=== PATIENT | female | born 1930 | race Caucasian/White ===

== ENCOUNTER 2018-08-21 17:32 | Inpatient (IN) ==
[2018-08-21] MEDS ORDERED: Sod Chloride 0.9% Inj 1,000 ML IV.SIG SCH (18:00)
[2018-08-21 18:32] LABS: Baso % (Auto) 0.2 % (0.0-2.0); Eos % (Auto) 0.2 % (0.0-4.0); Hematocrit 27.1 % (35.0-46.0); Hemoglobin 8.5 gm/dL (11.6-15.3); Lymph # (Auto) 0.7 th/mm3 (1.0-4.8); Lymph % (Auto) 5.1 % (9.0-44.0); Mean Corpuscular HGB Conc 31.2 % (32.0-36.0); Mean Corpuscular Hemoglobin 23.3 pg (27.0-34.0); Mean Corpuscular Volume 74.6 fL (80.0-100.0); Mean Platelet Volume 8.6 fL (7.0-11.0); Mono # (Auto) 0.5 th/mm3 (0.0-0.9); Mono % (Auto) 3.9 % (0.0-8.0); Neut # (Auto) 11.6 th/mm3 (1.8-7.7); Neut % (Auto) 90.6 % (16.0-70.0); Platelet Count 320 th/mm3 (150-450); Red Blood Count 3.63 mil/mm3 (4.00-5.30); Red Cell Distribution Width 16.7 % (11.6-17.2); White Blood Count 12.9 th/mm3 (4.0-11.0)
[2018-08-21 18:51] LABS: Activated Partial Thrombo Time 26.6 sec (23.4-31.7); Prothrombin Time 9.9 sec (9.8-11.6)
[2018-08-21 18:53] LABS: Alanine Aminotransferase 18 U/L (10-53); Albumin 3.4 g/dL (3.4-5.0); Anion Gap 7 meq/L (5-15); Aspartate Aminotransferase 18 U/L (15-37); Blood Urea Nitrogen 22 mg/dL (7-18); Calcium 8.3 mg/dL (8.5-10.1); Carbon Dioxide 26.3 meq/L (21.0-32.0); Chloride 108 meq/L (98-107); Glomerular Filtration Rate 45 mL/min (>89); Glucose,Random 114 mg/dL (74-106); Potassium 4.4 meq/L (3.5-5.1); Sodium 141 meq/L (136-145)
[2018-08-21 18:55] LABS: Alkaline Phosphatase 120 U/L (45-117)
--- NOTE | 2018-08-21 19:09 | ED ---
HPI General Chief complaint: Abdominal Pain Stated complaint: Abd pain Time Seen by Provider: 08/21/18 17:52 History of Present Illness HPI narrative: This is an 88-year-old female presents emergency department for evaluation of rectal bleeding and bilateral flank pain. Patient states been going on for about the past 24 hours. Nausea and black emesis as well as intermittent blood in the stool. She is not any blood thinners. States last colonoscopy was 4 years ago and was negative. States the pain is fairly mild, associated signs symptoms context and duration as above per Related Data Home Medications Medication Instructions Recorded Confirmed atorvastatin 40 mg PO QPM 08/21/18 08/21/18 conjugated estrogens [Premarin] 0.3 mg PO DAILY 08/21/18 08/21/18 diltiazem HCl [Tiazac] 240 mg PO DAILY 08/21/18 08/21/18 rabeprazole 20 mg PO DAILY 08/21/18 08/21/18 telmisartan 80 mg PO DAILY 08/21/18 08/21/18 Allergies Allergy/AdvReac Type Severity Reaction Status Date / Time No Known Allergies Allergy Verified 08/21/18 17:47 Review of Systems ROS: all other systems reviewed are negative [facility] Medical History Medical History Atrial fibrillation (Acute) Bowel cancer (Acute) Constipation (Acute) HTN (hypertension) (Acute) Hyperlipidemia (Acute) Surgical History Surgical History History of colon resection (Acute) Family History Family History Other Colon cancer Social History Social History Substance History: No History of Abuse Smoking Status: Former smoker How Often Do You Have a Drink Containing Alcohol: 2 to 4 times a month Recent Travel in [facility] within the Last 8 Weeks: No Recent Out of Country Travel within the Last 8 Weeks: Yes Immunization History Tetanus Immunization: >5 Years Exam Narrative Exam Narrative: GENERAL: Well-developed well-nourished, no obvious distress. Pale. SKIN: Focused skin assessment warm/dry. HEAD: Atraumatic. Normocephalic. EYES: Pupils equal and round. No scleral icterus. No injection or drainage. Conjunctival pallor noted ENT: No nasal bleeding or discharge. Mucous membranes pink and moist. NECK: Trachea midline. No JVD. CARDIOVASCULAR: Regular rate and rhythm. No murmur appreciated. RESPIRATORY: No accessory muscle use. Clear to auscultation. Breath sounds equal bilaterally. GASTROINTESTINAL: Abdomen soft, non-tender, nondistended. Hepatic and splenic margins not palpable. MUSCULOSKELETAL: No obvious deformities. No clubbing. No cyanosis. No edema. NEUROLOGICAL: Awake and alert. No obvious cranial nerve deficits. Motor grossly within normal limits. Normal speech. PSYCHIATRIC: Appropriate mood and affect; insight and judgment normal. Course Initial Documented Vital Signs Temperature 98.4 F 08/21/18 17:35 Pulse Rate 86 08/21/18 17:35 Respiratory Rate 16 08/21/18 17:35 Blood Pressure 232/97 H 08/21/18 17:35 Pulse Oximetry 93 L 08/21/18 17:35 Last Documented Vital Signs Temperature 98.4 F 08/21/18 17:35 Pulse Rate 103 H 08/22/18 01:12 Respiratory Rate 16 08/22/18 01:12 Blood Pressure 160/80 H 08/22/18 01:12 Pulse Oximetry 100 08/22/18 01:12 Sign Out Sign Out Data: Patient Sign Out occurred on 08/21/18 at 20:34. Patient's care was discussed, and care was transferred from Moose Edwards MD to Katt King MD. Sign Out Comment: GI Bleed, Bilateral flank pain, anemia. Probably admit after CT. Last updated by Moose Edwards MD at 08/21/18 19:30 Post-Handoff Eval: The patient's case was checked out to me by Dr. Edwards. Please see his initial history and physical. The patient reportedly presented with complaints of rectal bleeding and bilateral flank pain. The patient additionally reported to me that over the last 2 weeks she has had a cough productive of clear sputum. During the course of the patient's emergency department visit, the patient's history, examination, and differential diagnosis were reviewed with the patient. The patient was placed on a security monitor with oximetry and frequent blood pressure monitoring. The patient had IV access obtained and blood work sent for analysis. The patient was initially provided normal saline 1 L IV fluid bolus. The patient's diagnostic studies are remarkable for a white count of 12.9, hemoglobin 8.5, platelets are 320, neutrophils 90.6. PT PTT within normal limits. Chemistries remarkable for chloride of 108, BUN 22, creatinine 1.15, glucose 114, calcium 8.3, alk phos 120. I was notified by the patient's nurse that the patient was tachypneic and tachycardic. Patient on examination by me appeared to be in A. fib with RVR. Cardiac enzymes were added to the patient's workup. The patient reports a recent history, 2 weeks ago arriving from [place] , d-dimer was added to her workup to evaluate for possible underlying PE. The patient was started on Cardizem as a bolus and then a drip. A chest x-ray was done which showed mild pulmonary vascular congestion, no focal infiltrate. The patient was given Lasix [address] scan of the abdomen and pelvis shows that the patient is status post right hemicolectomy and hysterectomy, 2 gallstones within a noninflamed gallbladder are noted. No etiology to explain the patient's abdominal pain and no evidence of bowel obstruction was noted by the radiologist. The patient's cardiac enzymes are noted be within normal limits, BNP is elevated at 296. D-dimer was noted to be elevated at 1.73. I spoke to CT regarding this patient's case, they reported that the patient's GFR was too low to have additional IV contrast for CTA to rule out PE. VQ scan was ordered instead per the patient's VQ scan shows low probability scan for pulmonary embolism. The patient's case including history, pertinent physical examination findings, and laboratory studies were discussed with Dr. Connor. It was agreed that the patient would be admitted to the hospitalist service. The patient's results were discussed with the patient, including the plan of care. I explained that further testing and/ or monitoring is indicated based on the patient's history, examination, and/ or laboratory findings. Therefore, I recommended admission for additional evaluation. The patient expressed understanding and was agreeable with this plan. The patient was admitted to the hospital in guarded condition and sent to a bed under the care of the [facility] service. Medical Decision Making MDM Narrative Medical decision making narrative: Patient 88-year-old female not on anticoagulants presents the emergency department for evaluation of rectal bleeding, emesis which has been dark and bilateral flank pain. Patient does appear anemic, hemoglobin in the 8 range, she is actually hypertensive and no indication for emergent blood. Her rectal exam did show hemorrhoids which were nonthrombosed which were not bleeding, there was mucus only on her rectal exam but it was Hemoccult positive. Patient with a CAT scan pending will likely require admission for further workup of GI bleeding. Discussed with Dr. Katt King at 1900 chief change. Medical Screen Exam Complete: Yes Emergency Medical Condition: Yes Lab Data Result diagrams: 08/22/18 02:38 08/21/18 18:25 Lab Results 08/21/18 08/21/18 08/21/18 Range/Units 18:25 18:25 18:25 WBC 12.9 H (4.0-11.0) th/mm3 RBC 3.63 L (4.00-5.30) mil/mm3 Hgb 8.5 L (11.6-15.3) gm/dL Hct 27.1 L (35.0-46.0) % MCV 74.6 L (80.0-100.0) fL MCH 23.3 L (27.0-34.0) pg MCHC 31.2 L (32.0-36.0) % RDW 16.7 (11.6-17.2) % Plt Count 320 (150-450) th/mm3 MPV 8.6 (7.0-11.0) fL Neut % (Auto) 90.6 H (16.0-70.0) % Lymph % (Auto) 5.1 L (9.0-44.0) % Owsley % (Auto) 3.9 (0.0-8.0) % Eos % (Auto) 0.2 (0.0-4.0) % Baso % (Auto) 0.2 (0.0-2.0) % Neut # (Auto) 11.6 H (1.8-7.7) th/mm3 Lymph # (Auto) 0.7 L (1.0-4.8) th/mm3 Owsley # (Auto) 0.5 (0.0-0.9) th/mm3 Eos # (Auto) 0.0 (0.0-0.4) th/mm3 Baso # (Auto) 0.0 (0.0-0.2) th/mm3 WBC Differential . Differential Comment Auto diff final PT 9.9 (9.8-11.6) sec INR 1.0 Ratio APTT 26.6 (23.4-31.7) sec D-Dimer Quant (PE/DVT) (0.00-0.50) mg/L FEU Sodium 141 (136-145) meq/L Potassium 4.4 (3.5-5.1) meq/L Chloride 108 H (98-107) meq/L Carbon Dioxide 26.3 (21.0-32.0) meq/L Anion Gap 7 (5-15) meq/L BUN 22 H (7-18) mg/dL Creatinine 1.15 H (0.50-1.00) mg/dL Estimated GFR 45 L (>89) mL/min Random Glucose 114 H (74-106) mg/dL Calcium 8.3 L (8.5-10.1) mg/dL Total Bilirubin 0.2 (0.2-1.0) mg/dL AST 18 (15-37) U/L ALT 18 (10-53) U/L Alkaline Phosphatase 120 H (45-117) U/L Total Creatine Kinase (26-192) U/L Troponin I (0.02-0.05) ng/mL B-Natriuretic Peptide (0-100) pg/mL Total Protein 7.0 (6.4-8.2) g/dL Albumin 3.4 (3.4-5.0) g/dL Urine Color (Yellw/Straw) Urine Clarity (Clear) Urine pH (5.0-8.5) Ur Specific Blackwell (1.002-1.035) Urine Protein (Neg-Trace) mg/dL Urine Glucose (UA) (Negative) mg/dL Urine Ketones (Negative) mg/dL Urine Occult Blood (Negative) Urine Nitrate (Negative) Urine Bilirubin (Negative) Urine Urobilinogen (Less than 2) mg/dL Ur Leukocyte Esterase (Negative) Urine RBC (0-3) /hpf Urine WBC (0-5) /hpf Urine Bacteria (None) /hpf Urine Mucus (Occasional) /lpf Micro UA Comment Ur Microscopic Review Urine Culture Comments Blood Type Blood Type Recheck Antibody Screen 08/21/18 08/21/18 08/21/18 Range/Units 18:25 18:25 18:25 WBC (4.0-11.0) th/mm3 RBC (4.00-5.30) mil/mm3 Hgb (11.6-15.3) gm/dL Hct (35.0-46.0) % MCV (80.0-100.0) fL MCH (27.0-34.0) pg MCHC (32.0-36.0) % RDW (11.6-17.2) % Plt Count (150-450) th/mm3 MPV (7.0-11.0) fL Neut % (Auto) (16.0-70.0) % Lymph % (Auto) (9.0-44.0) % Owsley % (Auto) (0.0-8.0) % Eos % (Auto) (0.0-4.0) % Baso % (Auto) (0.0-2.0) % Neut # (Auto) (1.8-7.7) th/mm3 Lymph # (Auto) (1.0-4.8) th/mm3 Owsley # (Auto) (0.0-0.9) th/mm3 Eos # (Auto) (0.0-0.4) th/mm3 Baso # (Auto) (0.0-0.2) th/mm3 WBC Differential Differential Comment PT (9.8-11.6) sec INR Ratio APTT (23.4-31.7) sec D-Dimer Quant (PE/DVT) 1.73 H (0.00-0.50) mg/L FEU Sodium (136-145) meq/L Potassium (3.5-5.1) meq/L Chloride (98-107) meq/L Carbon Dioxide (21.0-32.0) meq/L Anion Gap (5-15) meq/L BUN (7-18) mg/dL Creatinine (0.50-1.00) mg/dL Estimated GFR (>89) mL/min Random Glucose (74-106) mg/dL Calcium (8.5-10.1) mg/dL Total Bilirubin (0.2-1.0) mg/dL AST (15-37) U/L ALT (10-53) U/L Alkaline Phosphatase (45-117) U/L Total Creatine Kinase 46 (26-192) U/L Troponin I Less than 0.02 L (0.02-0.05) ng/mL B-Natriuretic Peptide 296 H (0-100) pg/mL Total Protein (6.4-8.2) g/dL Albumin (3.4-5.0) g/dL Urine Color (Yellw/Straw) Urine Clarity (Clear) Urine pH (5.0-8.5) Ur Specific Blackwell (1.002-1.035) Urine Protein (Neg-Trace) mg/dL Urine Glucose (UA) (Negative) mg/dL Urine Ketones (Negative) mg/dL Urine Occult Blood (Negative) Urine Nitrate (Negative) Urine Bilirubin (Negative) Urine Urobilinogen (Less than 2) mg/dL Ur Leukocyte Esterase (Negative) Urine RBC (0-3) /hpf Urine WBC (0-5) /hpf Urine Bacteria (None) /hpf Urine Mucus (Occasional) /lpf Micro UA Comment Ur Microscopic Review Urine Culture Comments Blood Type Blood Type Recheck Antibody Screen 08/21/18 08/21/18 08/22/18 Range/Units 18:40 21:27 02:38 WBC (4.0-11.0) th/mm3 RBC (4.00-5.30) mil/mm3 Hgb 10.4 L (11.6-15.3) gm/dL Hct 33.5 L (35.0-46.0) % MCV (80.0-100.0) fL MCH (27.0-34.0) pg MCHC (32.0-36.0) % RDW (11.6-17.2) % Plt Count (150-450) th/mm3 MPV (7.0-11.0) fL Neut % (Auto) (16.0-70.0) % Lymph % (Auto) (9.0-44.0) % Owsley % (Auto) (0.0-8.0) % Eos % (Auto) (0.0-4.0) % Baso % (Auto) (0.0-2.0) % Neut # (Auto) (1.8-7.7) th/mm3 Lymph # (Auto) (1.0-4.8) th/mm3 Owsley # (Auto) (0.0-0.9) th/mm3 Eos # (Auto) (0.0-0.4) th/mm3 Baso # (Auto) (0.0-0.2) th/mm3 WBC Differential Differential Comment PT (9.8-11.6) sec INR Ratio APTT (23.4-31.7) sec D-Dimer Quant (PE/DVT) (0.00-0.50) mg/L FEU Sodium (136-145) meq/L Potassium (3.5-5.1) meq/L Chloride (98-107) meq/L Carbon Dioxide (21.0-32.0) meq/L Anion Gap (5-15) meq/L BUN (7-18) mg/dL Creatinine (0.50-1.00) mg/dL Estimated GFR (>89) mL/min Random Glucose (74-106) mg/dL Calcium (8.5-10.1) mg/dL Total Bilirubin (0.2-1.0) mg/dL AST (15-37) U/L ALT (10-53) U/L Alkaline Phosphatase (45-117) U/L Total Creatine Kinase (26-192) U/L Troponin I (0.02-0.05) ng/mL B-Natriuretic Peptide (0-100) pg/mL Total Protein (6.4-8.2) g/dL Albumin (3.4-5.0) g/dL Urine Color Straw (Yellw/Straw) Urine Clarity Clear (Clear) Urine pH 7.0 (5.0-8.5) Ur Specific Blackwell 1.021 (1.002-1.035) Urine Protein Negative (Neg-Trace) mg/dL Urine Glucose (UA) 50 (Negative) mg/dL Urine Ketones Negative (Negative) mg/dL Urine Occult Blood Large H (Negative) Urine Nitrate Negative (Negative) Urine Bilirubin Negative (Negative) Urine Urobilinogen Less than 2 (Less than 2) mg/dL Ur Leukocyte Esterase Trace H (Negative) Urine RBC 2 (0-3) /hpf Urine WBC 2 (0-5) /hpf Urine Bacteria Rare H (None) /hpf Urine Mucus Few H (Occasional) /lpf Micro UA Comment Culture not ind Ur Microscopic Review Not Reportable Urine Culture Comments Culture not ind Blood Type O Positive Blood Type Recheck Antibody Screen Negative Imaging Data Radiologist's impression: Abdomen/Pelvis CT 08/21/18 17:59 CONCLUSION: 1. Status post right hemicolectomy and hysterectomy. 2 gallstones within a noninflamed gallbladder. No etiology for abdominal pain is identified. No evidence of bowel obstruction. Chest X-Ray 08/21/18 20:20 CONCLUSION: Mild pulmonary vascular congestion. No focal infiltrate. Pulmonary Perfusion Imaging 08/22/18 00:21 CONCLUSION: Low probability scan for pulmonary embolism ECG Data Attestation: I personally reviewed and interpreted this ECG as follows: Interpretation: The patient had an EKG done on arrival that shows atrial fibrillation heart rate of 94, QRS duration is 93 ms, QTC [address] segment elevation. Discharge Plan Discharge Disposition Patient Disposition: ED Admit(ED Internal Use Only) Discharge Order Discharge Orders: ED Use Only Admit Order (Routine); Ordered 08/21/18 Ordered By: Katt King Discharge Details Diagnosis: GI bleed, Atrial fibrillation with RVR Physicians Team ED Provider: Katt King Primary Care Provider: Primary Care Jeromy,Gracia Attending Provider: Myesha Connor Discharge Interventions Interventions: Vital Signs Last Done: 08/22/18 01:12 Status ED Status: Admitted Patient
--- NOTE | 2018-08-21 19:40 | CT ---
EXAM DATE: 08/21/2018 7:25 PM EST AGE/SEX: 88 years / Female INDICATIONS: Acute onset abdominal pain with nausea and vomiting. CLINICAL DATA: This is the patient's initial encounter. Patient reports that signs and symptoms have been present for 1 day and indicates a pain score of 7/10. MEDICAL/SURGICAL HISTORY: Carcinoma, colon. Hypertension. Colon resection. ORAL CONTRAST: No oral contrast ingested. RADIATION DOSE: 6.64 CTDI (mGy) COMPARISON: No prior exams available for comparison. TECHNIQUE: Multiple contiguous axial images were obtained through the abdomen and pelvis following b olus infusion of 96 ml Omnipaque 350 (iohexol) nonionic water-soluble contrast as a single exam dos e. No oral contrast ingested. Using automated exposure control and adjustment of the mA and/or kV ac cording to patient size, radiation dose was kept as low as reasonably achievable to obtain optimal di agnostic quality images. DICOM format image data is available electronically for review and comparis on. FINDINGS: Lower Lungs: The visualized lower lungs are clear. Bilateral pleural effusions right greater than lef t Liver: The liver has a homogeneous density without space-occupying lesion. There is no dilation of th e biliary tree. A least 2 gallstones in a noninflamed gallbladder. Spleen: Homogeneous density without enlargement. Pancreas: Unremarkable without mass or calcification. Kidneys: Normal in size and shape. No evidence of mass or hydronephrosis. Adrenal Glands: Unremarkable. Aorta: Atherosclerotic disease without aneurysm. There is atherosclerotic disease at the origin of th e celiac and SMA but no obvious stenosis or poststenotic dilatation is identified The aorta and proxi mal iliac vessels are grossly unremarkable without aneurysmal dilation. Bowel/Mesentery: The patient's right hemicolectomy. The bowel loops are grossly unremarkable. The sig moid colon has a normal configuration. Sigmoid diverticulosis. Surgical clips throughout the epigastr ium Abdominal Wall: Intact. Retroperitoneum: No evidence of adenopathy in the retrocrural, para-aortic, or deep pelvic regions. Bladder: Contours are smooth. Reproductive Organs: No abnormal masses or calcifications seen status post hysterectomy. Inguinal: The inguinal region is unremarkable without evidence of adenopathy. Bony Structures: Unremarkable. CONCLUSION: 1. Status post right hemicolectomy and hysterectomy. 2 gallstones within a noninflamed gallbladder. No etiology for abdominal pain is identified. No evidence of bowel obstruction. Electronically signed by: Eugenio Dewey MD Board Certified Radiologist 08/21/2018 7:39 PM EST
--- NOTE | 2018-08-21 20:46 | XR ---
EXAM DATE: 08/21/2018 8:31 PM EST AGE/SEX: 88 years / Female INDICATIONS: Short of breath CLINICAL DATA: This is the patient's initial encounter. Patient reports that signs and symptoms have been present for 4 - 6 days and indicates a pain score of 0/10. MEDICAL/SURGICAL HISTORY: . Carcinoma, colon. Hypertension. . Colon resection COMPARISON: No prior exams available for comparison. FINDINGS: A single AP view of the chest demonstrates the lungs to be symmetrically aerated without evidence of mass, infiltrate or effusion. Mild perihilar vascular congestion The cardiomediastinal contours are u nremarkable. Osseous structures are intact. CONCLUSION: Mild pulmonary vascular congestion. No focal infiltrate. Electronically signed by: Eugenio Dewey MD Board Certified Radiologist 08/21/2018 8:44 PM EST
[2018-08-21 21:11] LABS: Creatine Kinase 46 U/L (26-192)
[2018-08-21 21:46] LABS: Bacteria,Urine Rare /hpf; Bilirubin,Urine Negative (Negative); Clarity,Urine Clear (Clear); Color,Urine Straw (Yellw/Straw); Glucose,Urine (UA) 50 mg/dL (Negative); Leukocyte Esterase,Urine Trace (Negative); Mucus,Urine Few /lpf (Occasional); Nitrite,Urine Negative (Negative); Specific Gravity,Urine 1.021 (1.002-1.035)
[2018-08-22] MEDS: dilTIAZem Inj 125 MG in Sodium Chlor 0.9% Inj 100 ML IV.CONT PRN ×2 (00:02→08:29)
--- NOTE | 2018-08-22 02:05 | NM ---
EXAM DATE: 08/22/2018 1:53 AM EST AGE/SEX: 88 years / Female INDICATIONS: Embolus. Dyspnea. CLINICAL DATA: This is the patient's initial encounter. Patient reports that signs and symptoms have been present for 1 day and indicates a pain score of 0/10. MEDICAL/SURGICAL HISTORY: Carcinoma, colon. Hypertension. Colon resection. Hysterectomy. COMPARISON: C, CHEST 1V SINGLE AP, 08/21/2018. . DOSE: 0.83 mCi Tc99m DTPA aerosol 8.5 mCi Tc99m MAA IV TECHNIQUE: Following five minutes of tidal breathing of DTPA aerosol, planar images of the lungs wer e performed in eight projections. The patient was then injected with MAA, and eight-view perfusion s can was performed. FINDINGS: Mild diffuse heterogeneity to aerosol uptake consistent with airways disease. Tiny nonsegmental venti latory abnormalities throughout both lungs. No focal segmental or subsegmental perfusion abnormalities to suggest pulmonary embolism CONCLUSION: Low probability scan for pulmonary embolism Electronically signed by: Parminder Munguia MD Board Certified Radiologist 08/22/2018 2:03 AM EST
--- NOTE | 2018-08-22 02:14 | P.HPIM ---
History of Present Illness Primary Care Physician: No Primary Care Physician 88-year-old female with a past medical history significant for history of ? colon cancer, hypertension, hyperlipidemia, possible atrial fibrillation or flutter not on systemic anticoagulation presents to the emergency department for the evaluation of crampy abdominal pain and cough. The patient is an extremely poor historian. She states that on 07/16/18 she began to have crampy abdominal pain with constipation. She states she had 5 different episodes of this. The patient reports that today she had nausea and vomiting with bloody emesis and bloody stool. She denies any chest pain or shortness of breath. No fever/chills. No focal neurologic deficits. The patient also denies any palpitations, dizziness or lightheadedness. Inpatient Certification Inpatient Certification: I certify that the inpatient services were ordered in accordance with Medicare regulations governing the order. This includes certification that hospital inpatient services are reasonable and necessary and in the case of services not specified as inpatient-only under 42 CFR 419.22(n), that they are appropriately provided as inpatient services in accordance to with the 2-midnight benchmark under 43 CFR 412.3(e) Estimated Total Length of Stay (Days): 3 Plans for Post Hospital Care: Not yet determined Review of Systems Review of Systems: all other systems reviewed are negative [facility] Medical History Medical History Atrial fibrillation (Acute) Bowel cancer (Acute) Constipation (Acute) HTN (hypertension) (Acute) Hyperlipidemia (Acute) Surgical History Surgical History History of colon resection (Acute) Family History Family History Other Colon cancer Social History Social History Substance History: No History of Abuse Smoking Status: Former smoker How Often Do You Have a Drink Containing Alcohol: 2 to 4 times a month Recent Travel in [place] within the Last 8 Weeks: No Recent Out of Country Travel within the Last 8 Weeks: Yes Immunization History Tetanus Immunization: >5 Years Medications and Allergies Allergies Allergy/AdvReac Type Severity Reaction Status Date / Time No Known Allergies Allergy Verified 08/21/18 17:47 Home Medications Medication Instructions Recorded Confirmed Type atorvastatin 40 mg PO QPM 08/21/18 08/21/18 History conjugated estrogens [Premarin] 0.3 mg PO DAILY 08/21/18 08/21/18 History diltiazem HCl [Tiazac] 240 mg PO DAILY 08/21/18 08/21/18 History rabeprazole 20 mg PO DAILY 08/21/18 08/21/18 History telmisartan 80 mg PO DAILY 08/21/18 08/21/18 History Active Medications: Active Medications Atorvastatin Calcium (Lipitor) 40 mg PO QPM RAMIN Diltiazem HCl 125 mg/ Sodium (Chloride) 125 mls @ 5 mls/hr IV.CONT TITRATE PRN ; Protocol PRN Reason: Per Protocol Last Titration: 08/22/18 00:54 Dose: 10 mg/hr, 10 mls/hr Sodium Chloride (Ns Inj) 1,000 mls @ 70 mls/hr IV.CONT .[id number] RAMIN Non-Formulary Medication (Diltiazem Hcl [Tiazac]) 240 mg PO DAILY RAMIN Non-Formulary Medication (Telmisartan [Telmisartan]) 80 mg PO DAILY RAMIN Ondansetron HCl (Zofran Inj) 4 mg IV.PUSH Q6H PRN PRN Reason: NAUSEA OR VOMITING Pantoprazole Sodium (Protonix Inj) 40 mg IV.PUSH BID RAMIN Sodium Chloride (Ns Flush) 2 ml IV.FLUSH PRN PRN PRN Reason: FLUSH AFTER USING IV ACCESS Last Admin: 08/21/18 18:30 Dose: 2 ml Sodium Chloride (Ns Flush) 2 ml IV.FLUSH BID RAMIN Sodium Chloride (Ns Flush) 2 ml IV.FLUSH PRN PRN PRN Reason: FLUSH AFTER USING IV ACCESS Physical Exam Vital signs: Vital Signs 08/21/18 17:35 08/21/18 17:47 08/21/18 18:28 Temperature 98.4 F Pulse Rate 86 85 89 Respiratory Rate 16 21 Blood Pressure 232/97 H 202/77 H 186/88 H Pulse Oximetry 93 L 96 08/21/18 20:05 08/21/18 20:20 08/21/18 20:37 Temperature Pulse Rate 98 H 95 H Respiratory Rate 22 26 H Blood Pressure 170/67 H 211/86 H 149/67 H Pulse Oximetry 90 L 94 L 08/21/18 21:18 08/22/18 00:06 08/22/18 00:57 Temperature Pulse Rate 92 H 105 H 117 H Respiratory Rate 22 18 18 Blood Pressure 181/76 H 177/88 H 163/85 H Pulse Oximetry 90 L 99 99 08/22/18 01:12 Temperature Pulse Rate 103 H Respiratory Rate 16 Blood Pressure 160/80 H Pulse Oximetry 100 Intake & Output 08/21/18 08/21/18 08/22/18 06:59 18:59 06:59 Intake Total 1500 / 1500 Balance 1500 / 1500 Weight 51.71 kg Intake: IV 1000 / 1000 NS Inj 1,000 ML @ 1000 mls/hr 1000 / 1000 IV.SIG BOLUS RAMIN Rx#:[id number] Other 500 / 500 Other: Other Intake Source Saline Solution Narrative: Gen.: No acute distress Head: Normocephalic. Atraumatic. EENT: Pupils equal round and reactive to light. Nose without drainage. Airway intact. Throat without injection. Cardiovascular: Tachycardic. Irregularly irregular rhythm. No murmurs/rubs/ gallops. Respiratory: Lungs clear to auscultation bilaterally. No wheezes or rhonchi. Abdomen: Soft, diffusely tender to palpation, nondistended. No peritoneal signs. Musculoskeletal: No gross deformities. No edema. Skin: No obvious rashes or erythema. Neuro: Sensory and motor grossly intact. Cranial nerves II through XII grossly intact. Urinary Catheter Management Indwelling Urethral Catheter: Cath placed during this visit: yes Reason for continuing: Hourly intake/output Insertion date: 08/22/18 Insertion time: 00:09 Results Labs CBC & Chem 7: 08/21/18 18:25 08/21/18 18:25 Imaging Impressions Abdomen/Pelvis CT 08/21/18 17:59 CONCLUSION: 1. Status post right hemicolectomy and hysterectomy. 2 gallstones within a noninflamed gallbladder. No etiology for abdominal pain is identified. No evidence of bowel obstruction. Chest X-Ray 08/21/18 20:20 CONCLUSION: Mild pulmonary vascular congestion. No focal infiltrate. Pulmonary Perfusion Imaging 08/22/18 00:21 CONCLUSION: Low probability scan for pulmonary embolism Caprini VTE Risk Assessment Caprini VTE Risk Assessment: Moderate/High Risk (score >= 2) Caprini Risk Assessment Model: Point Value = 1 Point Value = 2 Point Value = 3 Point Value = 5 Age 41-60 Minor surgery BMI > 25 kg/m2 Swollen legs Varicose veins or History of unexplained or recurrent spontaneous Oral contraceptives or hormone replacement Sepsis (< 1 month) Serious lung disease, including pneumonia (< 1 month) Abnormal pulmonary function Acute myocardial infarction Congestive heart failure (< 1 month) History of inflammatory bowel disease Medical patient at bed rest Age 61-74 Arthroscopic surgery Major open surgery (> 45 min) Laparoscopic surgery (> 45 min) Malignancy Confined to bed (> 72 hours) Immobilizing plaster cast Central venous access Age >= 75 History of VTE Family history of VTE Factor V Leiden Prothrombin [id number] Lupus anticoagulant Anticardiolipin antibodies Elevated serum homocysteine Heparin-induced thrombocytopenia Other congenital or acquired thrombophilia Stroke (< 1 month) Elective arthroplasty Hip, pelvis, or leg fracture Acute spinal cord injury (< 1 month) Prophylaxis Regimen: Total Risk Factor Score Risk Level Prophylaxis Regimen 0-1 Low Early ambulation 2 Moderate Order ONE of the following: *Sequential Compression Device (SCD) *Heparin 5000 units SQ BID 3-4 Higher Order ONE of the following medications: *Heparin 5000 units SQ TID *Enoxaparin/Lovenox 40 mg SQ daily (WT < 150 kg, CrCl > 30 mL/min) *Enoxaparin/Lovenox 30 mg SQ daily (WT < 150 kg, CrCl > 10-29 mL/min) *Enoxaparin/Lovenox 30 mg SQ BID (WT < 150 kg, CrCl > 30 mL/min) AND/OR *Sequential Compression Device (SCD) 5 or more Highest Order ONE of the following medications: *Heparin 5000 units SQ TID (Preferred with Epidurals) *Enoxaparin/Lovenox 40 mg SQ daily (WT < 150 kg, CrCl > 30 mL/min) *Enoxaparin/Lovenox 30 mg SQ daily (WT < 150 kg, CrCl > 10-29 mL/min) *Enoxaparin/Lovenox 30 mg SQ BID (WT < 150 kg, CrCl > 30 mL/min) AND *Sequential Compression Device (SCD) Assessment and Plan Plan Assessment/plan: 1. Atrial fibrillation with rapid ventricular response EKG shows A. fib with RVR Patient is an extremely poor historian however is on diltiazem at home. States she was previously diagnosed with atrial flutter once. Does not take any systemic anticoagulation Diltiazem bolus and drip Continue home diltiazem Wean drip as tolerated 2. GI bleed Patient reports an episode of hematemesis with bloody stool Hemoccult positive in the emergency department H&H 8.5.1 Transfuse as needed IV Protonix Gastroenterology consulted, appreciate assistance 3. Elevated d-dimer/intermittent shortness of breath VQ scan pending as patient just received contrast with her CT abdomen/pelvis 4. Hypertension/hyperlipidemia Continue home medications FEN N.p.o. NS at 70 cc/hour Electrolytes: Monitor and replete as needed Holding pharmacologic anticoagulation for GI bleed Patient is from [place] however does not have her insurance information. She reports that she will have her bring the information so that permission can be obtained from the insurance company for further workup and treatment.
[2018-08-22 02:52] LABS: Hematocrit 33.5 % (35.0-46.0); Hemoglobin 10.4 gm/dL (11.6-15.3)
[2018-08-22] MEDS: Sod Chloride 0.9% Inj 1,000 ML IV.CONT SCH ×2 (03:09→18:19)
[2018-08-22] MEDS ORDERED: Pantoprazole Inj 40 MG Vial IV.PUSH ONE (03:51)
[2018-08-22] MEDS ORDERED: Morphine Inj 4 MG/ML Vial IV.PUSH PRN (03:51)
[2018-08-22 06:18] LABS: Baso % (Auto) 0.2 % (0.0-2.0); Hematocrit 29.9 % (35.0-46.0); Hemoglobin 9.5 gm/dL (11.6-15.3); Lymph # (Auto) 0.5 th/mm3 (1.0-4.8); Lymph % (Auto) 2.9 % (9.0-44.0); Mean Corpuscular HGB Conc 31.7 % (32.0-36.0); Mean Corpuscular Hemoglobin 23.6 pg (27.0-34.0); Mean Corpuscular Volume 74.4 fL (80.0-100.0); Mean Platelet Volume 8.7 fL (7.0-11.0); Mono # (Auto) 0.8 th/mm3 (0.0-0.9); Mono % (Auto) 5.2 % (0.0-8.0); Neut # (Auto) 14.7 th/mm3 (1.8-7.7); Neut % (Auto) 91.7 % (16.0-70.0); Platelet Count 335 th/mm3 (150-450); Red Blood Count 4.02 mil/mm3 (4.00-5.30); Red Cell Distribution Width 16.8 % (11.6-17.2); White Blood Count 16.1 th/mm3 (4.0-11.0)
[2018-08-22 06:41] LABS: Alanine Aminotransferase 18 U/L (10-53); Albumin 3.4 g/dL (3.4-5.0); Anion Gap 10 meq/L (5-15); Aspartate Aminotransferase 18 U/L (15-37); Blood Urea Nitrogen 15 mg/dL (7-18); Calcium 8.2 mg/dL (8.5-10.1); Carbon Dioxide 27.1 meq/L (21.0-32.0); Chloride 105 meq/L (98-107); Glomerular Filtration Rate 51 mL/min (>89); Glucose,Random 133 mg/dL (74-106); Potassium 3.7 meq/L (3.5-5.1); Sodium 142 meq/L (136-145)
[2018-08-22 06:44] LABS: Alkaline Phosphatase 129 U/L (45-117); Total Protein 7.3 g/dL (6.4-8.2)
[2018-08-22] MEDS: Pantoprazole Inj 40 MG Vial IV.PUSH SCH ×2 (08:56→22:46)
[2018-08-22] MEDS: dilTIAZem CD 240 MG Capsule PO SCH (08:57)
[2018-08-22] MEDS: guaiFENesin 600 MG ER Tablet PO SCH ×2 (08:57→22:46)
--- NOTE | 2018-08-22 09:06 | P.CONGI ---
History of Present Illness Consult date: 08/22/18 Requesting physician: Myesha Connor Consult reason: GI bleeding Chief complaint: GI Bleed, AFIB w RVR Pumonary edema History of Present Illness: 88-year-old female who is a poor historian but reports a past medical history of colon cancer presented to the ER with 4-day history of nausea vomiting and diarrhea. Patient states she had multiple episodes of vomiting and diarrhea for several days and then began having bright red bloody emesis and bloody stools. She denies any fever. She states her was ill as well although not as ill as she was. She states they may have had food poisoning from some shellfish that they both ate. She tells me she had a colon resection many years ago for colon cancer, has a family history of colon cancer in her mother, and her last colonoscopy was 4 years ago and was normal. Labs on initial workup were hemoglobin of 8.5, hematocrit of 27.1, MCV of 74.6 and white blood cell count of 12.9. Most recent labs show white count has increased to 16.1, hemoglobin is 9.5, and hematocrit is 29.9. Platelets are 335. Currently she reports symptoms are resolved. She denies abdominal pain. She denies any nausea. She has no recent vomiting or bowel movements since admission. She is n.p.o. and has no appetite at present. [facility] - History History Provided By: Patient - Medical History Medical History: Medical History (Last Updated 08/22/18 @ 02:09 by Myesha Connor MD) Atrial fibrillation Bowel cancer Constipation HTN (hypertension) Hyperlipidemia - Surgical History Surgical History: Surgical History (Last Reviewed 08/22/18 @ 02:09 by Myesha Connor MD) History of colon resection - Family History Family History: Family History Other Colon cancer - Tobacco History Smoking Status: Former smoker - Alcohol History How Often Do You Have a Drink Containing Alcohol: 2 to 4 times a month - Substance Use History Substance History: No History of Abuse - Travel History Recent Travel in the [place] Within the Last 8 Weeks: No Recent Travel Out of the Country Within the Last 8 Weeks: Yes - Immunization History Tetanus Immunization: >5 Years Medications and Allergies Active Medications: Active Medications Atorvastatin Calcium (Lipitor) 40 mg PO QPM RAMIN Diltiazem HCl (Cardizem Cd 24hr) 240 mg PO DAILY RAMIN Last Admin: 08/22/18 08:57 Dose: 240 mg Guaifenesin (Mucinex Er) 1,200 mg PO BID [facility] Last Admin: 08/22/18 08:57 Dose: 1,200 mg Diltiazem HCl 125 mg/ Sodium (Chloride) 125 mls @ 5 mls/hr IV.CONT TITRATE PRN ; Protocol PRN Reason: Per Protocol Last Admin: 08/22/18 08:29 Dose: 15 mg/hr, 15 mls/hr Sodium Chloride (Ns Inj) 1,000 mls @ 70 mls/hr IV.CONT .[id number] [facility] Last Admin: 08/22/18 03:09 Dose: 70 mls/hr Losartan Potassium (Cozaar) 100 mg PO DAILY [facility] Last Admin: 08/22/18 08:57 Dose: 100 mg Morphine Sulfate (Morphine Inj) 2 mg IV.PUSH Q4H PRN PRN Reason: PAIN 1-10 AND/OR FEVER >101F Last Admin: 08/22/18 04:10 Dose: 2 mg Ondansetron HCl (Zofran Inj) 4 mg IV.PUSH Q6H PRN PRN Reason: NAUSEA OR VOMITING Last Admin: 08/22/18 02:46 Dose: 4 mg Pantoprazole Sodium (Protonix Inj) 40 mg IV.PUSH BID [facility] Last Admin: 08/22/18 08:56 Dose: 40 mg Sodium Chloride (Ns Flush) 2 ml IV.FLUSH BID [facility] Last Admin: 08/22/18 08:58 Dose: 2 ml Sodium Chloride (Ns Flush) 2 ml IV.FLUSH PRN PRN PRN Reason: FLUSH AFTER USING IV ACCESS Allergies Allergy/AdvReac Type Severity Reaction Status Date / Time No Known Allergies Allergy Verified 08/21/18 17:47 Home Medications Medication Instructions Recorded Confirmed Type atorvastatin 40 mg PO QPM 08/21/18 08/21/18 History conjugated estrogens [Premarin] 0.3 mg PO DAILY 08/21/18 08/21/18 History diltiazem HCl [Tiazac] 240 mg PO DAILY 08/21/18 08/21/18 History rabeprazole 20 mg PO DAILY 08/21/18 08/21/18 History telmisartan 80 mg PO DAILY 08/21/18 08/21/18 History Exam Vital signs: Vital Signs 08/21/18 17:35 08/21/18 17:47 08/21/18 18:28 Temperature 98.4 F Pulse Rate 86 85 89 Respiratory Rate 16 21 Blood Pressure 232/97 H 202/77 H 186/88 H Pulse Oximetry 93 L 96 08/21/18 20:05 08/21/18 20:20 08/21/18 20:37 Temperature Pulse Rate 98 H 95 H Respiratory Rate 22 26 H Blood Pressure 170/67 H 211/86 H 149/67 H Pulse Oximetry 90 L 94 L 08/21/18 21:18 08/22/18 00:06 08/22/18 00:57 Temperature Pulse Rate 92 H 105 H 117 H Respiratory Rate 22 18 18 Blood Pressure 181/76 H 177/88 H 163/85 H Pulse Oximetry 90 L 99 99 08/22/18 01:12 08/22/18 03:17 08/22/18 04:27 Temperature Pulse Rate 103 H 137 H 90 Respiratory Rate 16 22 16 Blood Pressure 160/80 H 142/78 H 127/72 Pulse Oximetry 100 99 96 08/22/18 05:32 Temperature 98 F Pulse Rate 118 H Respiratory Rate 20 Blood Pressure 131/72 Pulse Oximetry 97 Intake & Output 08/21/18 08/22/18 08/22/18 18:59 06:59 18:59 Intake Total 1500 / 1500 125 / 125 Output Total 1999 Balance -500 / -500 125 / 125 Weight 51.71 kg Intake: IV 1000 / 1000 125 / 125 Cardizem Inj 125 MG In NS Inj 125 / 125 100 ML @ 5 MG/HR 5 mls/hr IV. CONT TITRATE PRN Rx#:[id number] NS Inj 1,000 ML @ 1000 mls/hr 1000 / 1000 IV.SIG BOLUS RAMIN Rx#:[id number] Other 500 / 500 Output: Urine 1999 Other: Other Intake Source Saline Solution Results - Labs CBC & Chem 7: 08/22/18 05:30 08/22/18 05:30 Labs: Laboratory Results - last 24 hr 08/21/18 08/21/18 08/21/18 18:25 18:25 18:25 WBC 12.9 H RBC 3.63 L Hgb 8.5 L Hct 27.1 L MCV 74.6 L MCH 23.3 L MCHC 31.2 L RDW 16.7 Plt Count 320 MPV 8.6 Neut % (Auto) 90.6 H Lymph % (Auto) 5.1 L Frontier % (Auto) 3.9 Eos % (Auto) 0.2 Baso % (Auto) 0.2 Neut # (Auto) 11.6 H Lymph # (Auto) 0.7 L Frontier # (Auto) 0.5 Eos # (Auto) 0.0 Baso # (Auto) 0.0 WBC Differential . Differential Comment Auto diff final PT 9.9 INR 1.0 APTT 26.6 D-Dimer Quant (PE/DVT) Sodium 141 Potassium 4.4 Chloride 108 H Carbon Dioxide 26.3 Anion Gap 7 BUN 22 H Creatinine 1.15 H Estimated GFR 45 L Random Glucose 114 H Calcium 8.3 L Total Bilirubin 0.2 AST 18 ALT 18 Alkaline Phosphatase 120 H Total Creatine Kinase Troponin I B-Natriuretic Peptide Total Protein 7.0 Albumin 3.4 Urine Color Urine Clarity Urine pH Ur Specific [place] Urine Protein Urine Glucose (UA) Urine Ketones Urine Occult Blood Urine Nitrate Urine Bilirubin Urine Urobilinogen Ur Leukocyte Esterase Urine RBC Urine WBC Urine Bacteria Urine Mucus Micro UA Comment Ur Microscopic Review Urine Culture Comments Blood Type Blood Type Recheck Antibody Screen 08/21/18 08/21/18 08/21/18 18:25 18:25 18:25 WBC RBC Hgb Hct MCV MCH MCHC RDW Plt Count MPV Neut % (Auto) Lymph % (Auto) Frontier % (Auto) Eos % (Auto) Baso % (Auto) Neut # (Auto) Lymph # (Auto) Frontier # (Auto) Eos # (Auto) Baso # (Auto) WBC Differential Differential Comment PT INR APTT D-Dimer Quant (PE/DVT) 1.73 H Sodium Potassium Chloride Carbon Dioxide Anion Gap BUN Creatinine Estimated GFR Random Glucose Calcium Total Bilirubin AST ALT Alkaline Phosphatase Total Creatine Kinase 46 Troponin I Less than 0.02 L B-Natriuretic Peptide 296 H Total Protein Albumin Urine Color Urine Clarity Urine pH Ur Specific [place] Urine Protein Urine Glucose (UA) Urine Ketones Urine Occult Blood Urine Nitrate Urine Bilirubin Urine Urobilinogen Ur Leukocyte Esterase Urine RBC Urine WBC Urine Bacteria Urine Mucus Micro UA Comment Ur Microscopic Review Urine Culture Comments Blood Type Blood Type Recheck Antibody Screen 08/21/18 08/21/18 08/22/18 18:40 21:27 02:38 WBC RBC Hgb 10.4 L Hct 33.5 L MCV MCH MCHC RDW Plt Count MPV Neut % (Auto) Lymph % (Auto) Frontier % (Auto) Eos % (Auto) Baso % (Auto) Neut # (Auto) Lymph # (Auto) Frontier # (Auto) Eos # (Auto) Baso # (Auto) WBC Differential Differential Comment PT INR APTT D-Dimer Quant (PE/DVT) Sodium Potassium Chloride Carbon Dioxide Anion Gap BUN Creatinine Estimated GFR Random Glucose Calcium Total Bilirubin AST ALT Alkaline Phosphatase Total Creatine Kinase Troponin I B-Natriuretic Peptide Total Protein Albumin Urine Color Straw Urine Clarity Clear Urine pH 7.0 Ur Specific [place] 1.021 Urine Protein Negative Urine Glucose (UA) 50 Urine Ketones Negative Urine Occult Blood Large H Urine Nitrate Negative Urine Bilirubin Negative Urine Urobilinogen Less than 2 Ur Leukocyte Esterase Trace H Urine RBC 2 Urine WBC 2 Urine Bacteria Rare H Urine Mucus Few H Micro UA Comment Culture not ind Ur Microscopic Review Not Reportable Urine Culture Comments Culture not ind Blood Type O Positive Blood Type Recheck Antibody Screen Negative 08/22/18 08/22/18 05:30 05:30 WBC 16.1 H RBC 4.02 Hgb 9.5 L Hct 29.9 L MCV 74.4 L MCH 23.6 L MCHC 31.7 L RDW 16.8 Plt Count 335 MPV 8.7 Neut % (Auto) 91.7 H Lymph % (Auto) 2.9 L Frontier % (Auto) 5.2 Eos % (Auto) 0.0 Baso % (Auto) 0.2 Neut # (Auto) 14.7 H Lymph # (Auto) 0.5 L Frontier # (Auto) 0.8 Eos # (Auto) 0.0 Baso # (Auto) 0.0 WBC Differential . Differential Comment Auto diff final PT INR APTT D-Dimer Quant (PE/DVT) Sodium 142 Potassium 3.7 Chloride 105 Carbon Dioxide 27.1 Anion Gap 10 BUN 15 Creatinine 1.03 H Estimated GFR 51 L Random Glucose 133 H Calcium 8.2 L Total Bilirubin 0.4 AST 18 ALT 18 Alkaline Phosphatase 129 H Total Creatine Kinase Troponin I B-Natriuretic Peptide Total Protein 7.3 Albumin 3.4 Urine Color Urine Clarity Urine pH Ur Specific [place] Urine Protein Urine Glucose (UA) Urine Ketones Urine Occult Blood Urine Nitrate Urine Bilirubin Urine Urobilinogen Ur Leukocyte Esterase Urine RBC Urine WBC Urine Bacteria Urine Mucus Micro UA Comment Ur Microscopic Review Urine Culture Comments Blood Type Blood Type Recheck Antibody Screen - Imaging Impressions Abdomen/Pelvis CT 08/21/18 17:59 CONCLUSION: 1. Status post right hemicolectomy and hysterectomy. 2 gallstones within a noninflamed gallbladder. No etiology for abdominal pain is identified. No evidence of bowel obstruction. Chest X-Ray 08/21/18 20:20 CONCLUSION: Mild pulmonary vascular congestion. No focal infiltrate. Pulmonary Perfusion Imaging 08/22/18 00:21 CONCLUSION: Low probability scan for pulmonary embolism Assessment and Plan (1) GI bleed Status: Acute Code(s): K92.2 - Gastrointestinal hemorrhage, unspecified - Plan 1. Acute GI bleeding with hematemesis and hematochezia following what sounds like acute gastroenteritis. 2. Acute GI blood loss anemia 3. History of colon cancer status post right hemicolectomy. Plan for colonoscopy and EGD tomorrow. Monitor H&H and transfuse as needed. (1) GI bleed Qualifiers: GI bleed type/associated pathology: unspecified gastrointestinal hemorrhage type Qualified Code(s): K92.2 - Gastrointestinal hemorrhage, unspecified
[2018-08-22 11:51] LABS: Hematocrit 28.2 % (35.0-46.0); Hemoglobin 8.9 gm/dL (11.6-15.3)
--- NOTE | 2018-08-22 15:00 | ECG ---
Date Performed: 08/21/2018 Time Performed: 20:33:02 PTAGE: 88 years EKG: NORMAL Sinus rhythm WITH FIRST DEGREE AV BLOCK AND PACs ABNORMAL RHYTHM ECG NO PREVIOUS TRACING DOCTOR: Sathish Mon Interpretating Date/Time 08/22/2018 14:59:48
[2018-08-22] MEDS ORDERED: PEG 3350/E-Lyte Soln 4000 ML Bottle PO ONE (15:23)
[2018-08-22 16:58] LABS: Hematocrit 29.6 % (35.0-46.0); Hemoglobin 9.2 gm/dL (11.6-15.3)
--- NOTE | 2018-08-22 20:53 | CT ---
EXAM DATE: 08/22/2018 8:48 PM EST AGE/SEX: 88 years / Female INDICATIONS: Altered mental status. CLINICAL DATA: This is the patient's initial encounter. Patient reports that signs and symptoms have been present for 1 day and indicates a pain score of 0/10. MEDICAL/SURGICAL HISTORY: Carcinoma, colon. Hypertension. Colon resection. RADIATION DOSE: 47.54 CTDI (mGy) COMPARISON: No prior exams available for comparison. TECHNIQUE: CT of the head without contrast. Using automated exposure control and adjustment of the mA and/or kV according to patient size, radiation dose was kept as low as reasonably achievable to ob tain optimal diagnostic quality images. DICOM format image data is available electronically for revi ew and comparison. FINDINGS: Cerebrum: The ventricles are normal for age. No evidence of midline shift, mass lesion, hemorrhage or acute infarction. No extraaxial fluid collections are seen. Posterior Fossa: The cerebellum and brainstem are intact. The 4th ventricle is midline. The cerebe llopontine angle is unremarkable. Extracranial: The visualized portion of the orbits is intact. Skull: The calvaria is intact. No evidence of skull fracture. CONCLUSION: No acute intracranial findings. . Electronically signed by: Morgan Guy MD Board Certified Radiologist 08/22/2018 8:51 PM EST
--- NOTE | 2018-08-22 21:10 | CT ---
EXAM DATE: 08/22/2018 9:01 PM EST AGE/SEX: 88 years / Female INDICATIONS: Shortness of breath. CLINICAL DATA: This is the patient's initial encounter. Patient reports that signs and symptoms have been present for 1 day and indicates a pain score of 0/10. MEDICAL/SURGICAL HISTORY: Carcinoma, colon. Hypertension. Colon resection. RADIATION DOSE: 6.28 CTDI (mGy) COMPARISON: No prior exams available for comparison. TECHNIQUE: Volumetric scanning was performed using a multi-row detector CT scanner during bolus infu chanel of 73 ml Omnipaque 350 (iohexol) nonionic water-soluble contrast as a single exam dose. The natali a was post processed with a variety of visualization algorithms including full volume maximum intensi ty projection and sliding thin slab reformation. Using automated exposure control and adjustment of the mA and/or kV according to patient size, radiation dose was kept as low as reasonably achievable t o obtain optimal diagnostic quality images. DICOM format image data is available electronically for review and comparison. FINDINGS: Pulmonary Arteries: No filling defects in the pulmonary arteries to suggest pulmonary embolus. Moder ate dependent atelectasis of the lower lobes. Fairly symmetric scarring in the lung apices. Calcified granuloma in the anterior left upper lobe. 4 mm nodular density in the central right middle lobe on image #72. Patchy atelectasis in the right middle lobe and lingula. Lung: No infiltrates seen. Effusion: Small bilateral pleural effusions. Mediastinum: Diffuse aortic calcification and coronary artery calcification. Prominent atherosclerot ic disease of the aortic arch. No enlarged lymph nodes. Other: The axilla is unremarkable. CONCLUSION: 1. No evidence of pulmonary embolus. 2. 4 mm right midlung nodular density. Patient has a history of colon cancer. Recommend six-month fo llow-up noncontrast chest CT. 3. Small bilateral pleural effusions. 4. Moderate severity dependent atelectasis of the lower lobes. Patchy atelectasis lingula and right middle lobe. Electronically signed by: Morgan Guy MD Board Certified Radiologist 08/22/2018 9:09 PM EST
[2018-08-22 22:05] LABS: Hematocrit 27.8 % (35.0-46.0); Hemoglobin 8.5 gm/dL (11.6-15.3)
[2018-08-23] MEDS: dilTIAZem Inj 125 MG in Sodium Chlor 0.9% Inj 100 ML IV.CONT PRN (04:52)
[2018-08-23] MEDS ORDERED: Metoprolol Tartrate 25 MG Tablet PO SCH (06:59)
[2018-08-23] MEDS ORDERED: Chlorhexidine Gluconate 2% 1 Pack (2 Cloths) TOPICAL SCH (06:59)
[2018-08-23] MEDS ORDERED: Sodium Chlor 0.9% Inj 500 ML IV.SIG SCH (07:00)
[2018-08-23] MEDS: dilTIAZem CD 240 MG Capsule PO SCH (08:37)
[2018-08-23] MEDS: guaiFENesin 600 MG ER Tablet PO SCH ×2 (08:38→21:29)
[2018-08-23] MEDS: Pantoprazole Inj 40 MG Vial IV.PUSH SCH ×2 (08:38→21:30)
[2018-08-23] MEDS: Sod Chloride 0.9% Inj 1,000 ML IV.CONT SCH ×2 (09:46→21:30)
--- NOTE | 2018-08-23 09:48 | P.DIET ---
Nutritional Evaluation Type of nutrition evaluation: initial Nutrition screening: Weight Loss > 10 lbs (Weight loss screen ) Objective - Diagnosis GI bleed, Afib with RVR pulmonary edema - Objective Dietitian Reviewed in Medical Record: Curent medications, Intake & Output, Labs , Medical history Diet Order: NPO Assessment Assessment: Weight loss screen; Pt presents to ED for evaluation of rectal bleeding and bilateral flank pain x24 hours and is currently at nutritional risk related to unplanned weight loss. Pt is NPO at this time, will monitor for return of diet order and assess need for nutritional supplement as appropriate. Recommendations: 1. Monitor for return of diet order and assess need for nutritional supplement Dietitian to Monitor: Diet advancement, Medical course
[2018-08-23] MEDS ORDERED: Phenylephrine/NS 1000 MCG/10ML Syringe IV.PUSH ONE (09:55)
[2018-08-23] MEDS ORDERED: Lidocaine PF 1% Inj 5 ML Syringe OTHER ONE (09:55)
[2018-08-23] MEDS ORDERED: Furosemide Inj 0 ML ONE (10:22)
--- NOTE | 2018-08-23 10:37 | P.PNIM ---
Physical Exam Vital signs: Vital Signs 08/22/18 11:36 08/22/18 14:06 08/22/18 14:30 Temperature 99.4 F Pulse Rate 70 76 Respiratory Rate 16 16 20 Blood Pressure 118/57 L 120/60 Pulse Oximetry 93 L 08/22/18 15:00 08/22/18 16:00 08/22/18 17:00 Temperature Pulse Rate 78 80 76 Respiratory Rate Blood Pressure Pulse Oximetry 08/22/18 18:00 08/22/18 19:00 08/22/18 20:00 Temperature Pulse Rate 80 81 94 H Respiratory Rate Blood Pressure Pulse Oximetry 08/22/18 22:00 08/22/18 22:42 08/22/18 23:00 Temperature 98.9 F Pulse Rate 124 H 100 H 105 H Respiratory Rate 16 Blood Pressure 135/63 Pulse Oximetry 94 L 08/23/18 00:00 08/23/18 01:00 08/23/18 02:00 Temperature Pulse Rate 84 94 H 122 H Respiratory Rate Blood Pressure Pulse Oximetry 08/23/18 03:00 08/23/18 04:00 08/23/18 05:00 Temperature 98.7 F Pulse Rate 111 H 105 H 100 H Respiratory Rate 16 Blood Pressure 156/65 H Pulse Oximetry 96 08/23/18 06:00 08/23/18 07:42 08/23/18 08:57 Temperature 98.9 F 98.2 F Pulse Rate 98 H 95 H 119 H Respiratory Rate 16 24 Blood Pressure 130/85 166/78 H Pulse Oximetry 96 100 Intake & Output 08/22/18 08/23/18 08/23/18 18:59 06:59 18:59 Intake Total 1765 / 1765 875 / 875 1000 / 1000 Balance 1765 / 1765 875 / 875 1000 / 1000 Weight 52 kg Intake: IV 1125 / 1125 125 / 125 1000 / 1000 NS Inj 1,000 ML @ 70 mls/hr IV. 1000 / 1000 1000 / 1000 CONT .[id number] [facility] Rx#:[id number] Cardizem Inj 125 MG In NS Inj 125 / 125 125 / 125 100 ML @ 5 MG/HR 5 mls/hr IV. CONT TITRATE PRN Rx#:[id number] Oral 640 / 640 750 / 750 Other: # Voids 4 Date of Last Bowel Movement 08/21/18 08/22/18 # Bowel Movements 5 Narrative: Gen.: No acute distress Cardiovascular: Tachycardic. Irregularly irregular rhythm. No murmurs/rubs/ gallops. Respiratory: Lungs clear to auscultation bilaterally. No wheezes or rhonchi. Abdomen: Soft, diffusely tender to palpation, nondistended. No peritoneal signs. Musculoskeletal: No gross deformities. No edema. Skin: No obvious rashes or erythema. Neuro: Sensory and motor grossly intact. Cranial nerves II through XII grossly intact. Urinary Catheter Management Indwelling Urethral Catheter: Cath placed during this visit: yes Reason for continuing: Acute urinary retention Insertion date: 08/22/18 Insertion time: 00:09 Results Labs CBC & Chem 7: 08/22/18 21:40 08/22/18 05:30 Imaging Imaging: Impressions Head CT 08/22/18 20:10 CONCLUSION: No acute intracranial findings. . Chest CTA 08/22/18 22:13 CONCLUSION: 1. No evidence of pulmonary embolus. 2. 4 mm right midlung nodular density. Patient has a history of colon cancer. Recommend six-month follow-up noncontrast chest CT. 3. Small bilateral pleural effusions. 4. Moderate severity dependent atelectasis of the lower lobes. Patchy atelectasis lingula and right middle lobe. Assessment and Plan (1) GI bleed: Code(s): K92.2 - Gastrointestinal hemorrhage, unspecified Status: Acute Plan 1. Atrial fibrillation with rapid ventricular response EKG shows A. fib with RVR Patient is an extremely poor historian however is on diltiazem at home. States she was previously diagnosed with atrial flutter once. Does not take any systemic anticoagulation Diltiazem bolus and drip Continue home diltiazem Wean drip as tolerated, Stop cardizem drip if HR< 90 sustained and turn back on if HT sustained > 110 2. GI bleed Patient reports an episode of hematemesis with bloody stool Hemoccult positive in the emergency department H&H 8.5/27.1 on admission , stable so far continue to monitor and transfuse if patient symptomatic ot if HGB< 7 Transfuse as needed IV Protonix Gastroenterology consulted, appreciate assistance -S/p panendoscopy: Patient is with h/o right hemicolectomy. Erosions at anastomosis .Bx taken 2. A pedunculated polyp measuring .8 cm in size was found in the transverse colon; polypectomy was performed using snare cautery 3. Moderate diverticulosis was noted in the descending colon and sigmoid colon 4. Retroflexed views revealed internal hemorrhoids 5. Retroflexed views revealed medium internal hemorrhoids 6. Revealed no abnormalities of the rectum Return 1 year Colonoscopy 3. Elevated d-dimer/intermittent shortness of breath VQ scan pending as patient just received contrast with her CT abdomen/pelvis 4. Hypertension/hyperlipidemia Continue home medications FEN N.p.o. NS at 70 cc/hour Electrolytes: Monitor and replete as needed Holding pharmacologic anticoagulation for GI bleed Progress Note: Quality VTE Deep Vein Thrombosis/Pulmonary Embolism Present on Admission: No _ (1) GI bleed Qualifiers: GI bleed type/associated pathology: unspecified gastrointestinal hemorrhage type Gastritis type: Qualified Code(s): K92.2 - Gastrointestinal hemorrhage, unspecified
--- NOTE | 2018-08-23 11:00 | GIPROC ---
[facility] [address] [facility]. [facility], [address] COLONOSCOPY PROCEDURE REPORT EXAM DATE: 08/23/2018 PATIENT NAME: Funmilayo Adams MR #: [id number] BIRTHDATE: 1930 ENDOSCOPIST: Eric Welsh MD ORDER #: [id number] WELDING MACHINE SETTER: Nick Rutledge and Geni Bolivar STATUS: inpatient INDICATIONS: The patient is a 88 yr old female here for a colonoscopy due to high risk patient with personal history of colon cancer and s/p rt hemicolectomy PROCEDURE PERFORMED: Colonoscopy with biopsy Colonoscopy with polypectomy MEDICATIONS: Per Anesthesia and None. PREP QUALITY: poor ESTIMATED BLOOD LOSS: None CONSENT: The patient understands the risks and benefits of the procedure and understands that these risks include, but are not limited to: sedation, allergic reaction, infection, perforation and/or bleeding. Alternative means of evaluation and treatment include, among others: physical exam, x-rays, and/or surgical intervention. The patient elects to proceed with this endoscopic procedure. medical equipment was checked for proper function. Hand hygiene and appropriate measures for infection prevention was taken. After the risks, benefits and alternatives of the procedure were thoroughly explained, Informed consent was verified, confirmed and timeout was successfully executed by the treatment team. A digital exam revealed no abnormalities of the rectum The Pentax [id number] endoscope was introduced through the anus and advanced to the cecum, which was identified by both the appendix and ileocecal valve. The instrument was then slowly withdrawn as the colon was fully examined. COLON FINDINGS: S/P right hemicolectomy. Erosions at anastomosis .Bx taken. A pedunculated polyp measuring .8 cm in size was found in the transverse colon. A polypectomy was performed using snare cautery. Moderate diverticulosis was noted in the descending colon and sigmoid colon. Retroflexed views revealed internal hemorrhoids and Retroflexed views revealed medium internal hemorrhoids The scope was then completely withdrawn from the patient and the procedure terminated. PROCEDURE WITHDRAWAL TIME:10minutes ADVERSE EVENTS: There were no complications. IMPRESSIONS: 1. S/P right hemicolectomy. Erosions at anastomosis .Bx taken 2. A pedunculated polyp measuring .8 cm in size was found in the transverse colon; polypectomy was performed using snare cautery 3. Moderate diverticulosis was noted in the descending colon and sigmoid colon 4. Retroflexed views revealed internal hemorrhoids 5. Retroflexed views revealed medium internal hemorrhoids 6. Revealed no abnormalities of the rectum RECOMMENDATIONS: Await biopsy results. Biopsy results will not be ready for 7-10 days. If you don't hear from us in two weeks, call our office for results. RECALL: Return 1 year Colonoscopy Eric Welsh MD eSigned: Eric Welsh MD 08/23/2018 10:59 AM cc: PATIENT NAME: Funmilayo Adams MR#: [id number]
--- NOTE | 2018-08-23 13:30 | GIPROC ---
[facility] [address] [facility]. [facility], [address] EGD PROCEDURE REPORT EXAM DATE: 08/23/2018 PATIENT NAME: Funmilayo Adams MR #: [id number] BIRTHDATE: 1930 ATTENDING: Eric Welsh MD ORDER #: [id number] DOWEL PIN WORKER: Nick Rutledge and Geni Bolivar STATUS: inpatient INDICATIONS: The patient is a 88 yr old female here for an EGD due to nausea and vomiting PROCEDURE PERFORMED: EGD w/ biopsy MEDICATIONS: Per Anesthesia and None. TOPICAL ANESTHETIC: none CONSENT: The patient understands the risks and benefits of the procedure and understands that these risks include, but are not limited to: sedation, allergic reaction, infection, perforation and/or bleeding. Alternative means of evaluation and treatment include, among others: physical exam, x-rays, and/or surgical intervention. The patient elects to proceed with this endoscopic procedure. medical equipment was checked for proper function. Hand hygiene and appropriate measures for infection prevention was taken. After the risks, benefits and alternatives of the procedure were thoroughly explained, Informed consent was verified, confirmed and timeout was successfully executed by the treatment team. The patient was anesthetized with topical anesthesia and the Pentax [id number] endoscope was introduced through the mouth and advanced to the second portion of the duodenum. Retroflexed views revealed no abnormalities The gastroscope was then slowly withdrawn and removed. ESOPHAGUS: The mucosa of the esophagus appeared normal. STOMACH: The mucosa of the stomach appeared normal. DUODENUM: The duodenal mucosa appeared normal in the duodenal bulb. A circumferential fungating mass was found in the 2nd part of the duodenum. Obstructing lumen. Multiple biopsies were performed. Sample sent for histology. Mass tattooed with SPOT ink. ADVERSE EVENTS: There were no complications. IMPRESSIONS: 1. The esophagus appeared normal 2. The mucosa of the stomach appeared normal 3. Normal duodenal mucosa in the duodenal bulb 4. Circumferential mass was found in the 2nd part of the duodenum; obstructing lumen 5. Retroflexed views revealed no abnormalities RECOMMENDATIONS: 1. Await biopsy results. Biopsy results will not be ready for 7-10 days. If you don't hear from us in two weeks, call our office for biopsy results. 2. CT A/P PATIENT CONDITION: stable DISPOSITION: Inpatient REPEAT EXAM: Return as needed for EGD Eric Welsh MD eSigned: Eric Welsh MD 08/23/2018 1:30 PM cc: PATIENT NAME: Funmilayo Adams MR#: [id number]
--- NOTE | 2018-08-24 02:24 | MB ---
cc: Dakota Chauhan MD DATE: 08/23/2018 PERSON REQUESTING CONSULTATION: Leidy Liriano MD REASON FOR CONSULTATION: Upper GI bleed and duodenal mass. HISTORY OF PRESENT ILLNESS: The patient is an 88-year-old female who presented to [facility] Emergency Department on 08/21/2018 complaining of flank pain and rectal bleeding. The patient was also found to be significantly anemic with hemoglobin 8.5. The patient underwent admission and further workup. The patient underwent a colonoscopy and an upper endoscopy by Dr. Welsh on 08/23/2018 that returned a circumferential mass was found in the second portion of the duodenum obstructing the lumen and a colonoscopy, which did not show any obvious source of bleeding. The patient also appears to have somewhat obstructive symptoms, although there is no evidence of obstruction on the patient's CT scan, which was performed on 08/21/2018. Surgical Oncology was asked to see the patient for evaluation and management. REVIEW OF SYSTEMS: A 12-point review of systems is conducted with the patient and is negative except for the pertinent positives mentioned above in history of present illness. PAST MEDICAL HISTORY: Atrial fibrillation, history of colon cancer, hypertension, hyperlipidemia. PAST SURGICAL HISTORY: History of colon resection in 1980 in [place], open resection. ALLERGIES: NO KNOWN DRUG ALLERGIES. MEDICATIONS: 1. Atorvastatin. 2. Premarin. 3. Tiazac. 4. Rabeprazole. 5. Telmisartan. SOCIAL HISTORY: The patient rarely uses alcohol. She is . Her has some vision problems. She used to smoke, quit many years ago. FAMILY HISTORY: History of colon cancer, otherwise unremarkable. PHYSICAL EXAMINATION: VITAL SIGNS: Heart rate 82, blood pressure 125/49, O2 saturations 98%, temperature 98.4 degrees. GENERAL: The patient is a thin, female, in no acute distress. She does not appear acute or chronically ill. HEENT: Head is normocephalic, atraumatic. Pupils are round and reactive and accommodate to light. Sclerae nonicteric. Oral cavity is clear. Airway is patent. NECK: Supple. No JVD. No lymphadenopathy. LUNGS: Breath sounds present bilaterally. Nonlabored breathing pattern. HEART: Regular rate and rhythm. PMI is nondisplaced. ABDOMEN: Soft. Some minimal tenderness in the epigastric area without peritonitis or rebound tenderness. Midline scar is well healed without hernia. Normal bowel sounds. No masses. No ascites. No organomegaly. BACK: No CVA tenderness. EXTREMITIES: No clubbing, cyanosis or edema. Warm, perfused and intact x4 extremities. NEUROLOGIC: The patient is alert and oriented x3. Nonfocal peripheral exam. Cranial nerves 2-12 are grossly intact. Mood, judgment and insight are intact. LABORATORY VALUES: Hemoglobin is 8.5, hematocrit 27.8. 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 Biopsies were taken and are pending at this time. The patient does not have an obvious obstruction at this time. I do not recommend any acute surgical intervention at this time as the patient seems to have either resolution of her acute bleeding or has chronic bleeding as well as biopsies are pending. I discussed the potential treatment options with the patient including surgery and radiation for both benign and malignant type lesions. I discussed rationale for treatment for her bleeding and possibly obstruction as well. The patient is very adamant that she had a lot of complications and a long recovery from her last surgery and is very concerned about undergoing any procedures. I recommend at this point in time we follow up on biopsy results and make further recommendations at that time for either surgery versus radiation. We will follow up this patient. Thank you very much for this consultation. Dakota Chauhan MD AWG/sv/rr , 12:12 AM , 12:26 AM
[2018-08-24] MEDS: guaiFENesin 600 MG ER Tablet PO SCH ×2 (09:16→20:40)
[2018-08-24] MEDS: dilTIAZem CD 300 MG Capsule PO SCH (09:17)
[2018-08-24] MEDS: Pantoprazole Inj 40 MG Vial IV.PUSH SCH ×2 (09:17→20:40)
--- NOTE | 2018-08-24 10:32 | P.PNGS ---
Subjective Interval history: Resting in bed No issues overnight at bedside--- pleased that she was able to get OOB and walk some this morning Physical Exam Vital signs: Vital Signs 08/23/18 10:45 08/23/18 11:00 08/23/18 11:15 Temperature 97.4 F L 97.5 F L Pulse Rate 80 77 79 Respiratory Rate 20 20 16 Blood Pressure 113/60 113/54 L 113/59 L Pulse Oximetry 98 95 98 08/23/18 11:29 08/23/18 12:00 08/23/18 13:00 Temperature 97.6 F Pulse Rate 81 81 84 Respiratory Rate 15 Blood Pressure 122/54 L Pulse Oximetry 98 08/23/18 15:00 08/23/18 15:08 08/23/18 16:00 Temperature 98.4 F Pulse Rate 98 H 82 92 H Respiratory Rate 17 Blood Pressure 125/49 L Pulse Oximetry 08/23/18 17:00 08/23/18 18:00 08/23/18 19:00 Temperature Pulse Rate 98 H 104 H 98 H Respiratory Rate Blood Pressure Pulse Oximetry 08/23/18 20:00 08/23/18 21:00 08/23/18 22:00 Temperature 98.8 F Pulse Rate 102 H 102 H 108 H Respiratory Rate 20 Blood Pressure 125/74 Pulse Oximetry 97 08/23/18 23:00 08/24/18 00:00 08/24/18 01:00 Temperature 98.2 F Pulse Rate 98 H 94 H 90 Respiratory Rate 20 Blood Pressure 128/65 Pulse Oximetry 98 08/24/18 02:00 08/24/18 03:00 08/24/18 04:00 Temperature Pulse Rate 92 H 96 H 99 H Respiratory Rate 18 Blood Pressure 132/66 Pulse Oximetry 91 L 08/24/18 05:00 08/24/18 06:00 08/24/18 07:00 Temperature Pulse Rate 100 H 99 H 92 H Respiratory Rate Blood Pressure Pulse Oximetry Intake & Output 08/23/18 08/24/18 08/24/18 18:59 06:59 18:59 Intake Total 1540 / 1540 1000 / 1000 Output Total 1200 / 1200 450 / 450 Balance 340 / 340 550 / 550 Weight 55 kg Intake: IV 1000 / 1000 1000 / 1000 NS Inj 1,000 ML @ 70 mls/hr IV. 1000 / 1000 1000 / 1000 CONT .[id number] [facility] Rx#:[id number] Oral 340 / 340 Anesthesia Amount 200 / 200 Output: Stool 200 / 200 200 / 200 Urine Amount (Catheter) 1000 / 1000 250 / 250 Indwelling Urethral Catheter 1000 / 1000 250 / 250 Other: Date of Last Bowel Movement 08/23/18 08/24/18 # Bowel Movements 4 Narrative: Alert and awake Abd: soft; minimally tender to palpation - Urinary Catheter Management Indwelling Urethral Catheter Cath placed during this visit: yes Reason for continuing: Acute urinary retention Insertion date: 08/22/18 Insertion time: 00:09 Results - Labs 08/26/18 11:05 08/26/18 11:05 - Imaging Imaging: ITS Impressions Abdomen/Pelvis CT 08/21/18 17:59 CONCLUSION: 1. Status post right hemicolectomy and hysterectomy. 2 gallstones within a noninflamed gallbladder. No etiology for abdominal pain is identified. No evidence of bowel obstruction. Chest X-Ray 08/21/18 20:20 CONCLUSION: Mild pulmonary vascular congestion. No focal infiltrate. Pulmonary Perfusion Imaging 08/22/18 00:21 CONCLUSION: Low probability scan for pulmonary embolism Head CT 08/22/18 20:10 CONCLUSION: No acute intracranial findings. . Chest CTA 08/22/18 22:13 CONCLUSION: 1. No evidence of pulmonary embolus. 2. 4 mm right midlung nodular density. Patient has a history of colon cancer. Recommend six-month follow-up noncontrast chest CT. 3. Small bilateral pleural effusions. 4. Moderate severity dependent atelectasis of the lower lobes. Patchy atelectasis lingula and right middle lobe. Assessment and Plan - Plan 88 year old female with anemia; GIB; findings of duodenal mass on EGD -Continue to monitor Hmg/Hct -Continue clear liquids -Await biopsy results and will make further recommendations once back - Attending Attestation The exam, history, and the medical decision-making described in the above note were completed with the assistance of the mid-level provider. I reviewed and agree with the findings presented. I attest that I had a [id number] encounter with the patient on the same day, and personally performed and documented my assessment and findings in the medical record. Patient with upper GI bleed, favor chronic bleeding First and second portion duodenal polyp without obstruction Discussed with patient treatment options including surgery if bleeding becomes more acute Will follow
[2018-08-24] MEDS: Sod Chloride 0.9% Inj 1,000 ML IV.CONT SCH (11:04)
--- NOTE | 2018-08-24 12:51 | P.PNIM ---
Subjective Interval history: The patient is in bed appears weak. Consulted PT for evaluation PT recommends rehab however patient is from [place]. at bedside working with her case management for the insurance. 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 However overall says she is improving. No more nausea or vomiting however she is not eating much. Says she does not have appetite. Did not have a bowel movement. No bleeding from rectum. Does not feel palpitations however heart rate is upper 90s and lower 100. Increase diltiazem. Minimal abdominal pain, patient says she is trying to hold on taking any narcotics. No fever or chills. No shortness of breath. No chest pain. Physical Exam Vital signs: Vital Signs 08/23/18 13:00 08/23/18 15:00 08/23/18 15:08 Temperature 98.4 F Pulse Rate 84 98 H 82 Respiratory Rate 17 Blood Pressure 125/49 L Pulse Oximetry 08/23/18 16:00 08/23/18 17:00 08/23/18 18:00 Temperature Pulse Rate 92 H 98 H 104 H Respiratory Rate Blood Pressure Pulse Oximetry 08/23/18 19:00 08/23/18 20:00 08/23/18 21:00 Temperature 98.8 F Pulse Rate 98 H 102 H 102 H Respiratory Rate 20 Blood Pressure 125/74 Pulse Oximetry 97 08/23/18 22:00 08/23/18 23:00 08/24/18 00:00 Temperature 98.2 F Pulse Rate 108 H 98 H 94 H Respiratory Rate 20 Blood Pressure 128/65 Pulse Oximetry 98 08/24/18 01:00 08/24/18 02:00 08/24/18 03:00 Temperature Pulse Rate 90 92 H 96 H Respiratory Rate Blood Pressure Pulse Oximetry 08/24/18 04:00 08/24/18 05:00 08/24/18 06:00 Temperature Pulse Rate 99 H 100 H 99 H Respiratory Rate 18 Blood Pressure 132/66 Pulse Oximetry 91 L 08/24/18 07:00 08/24/18 08:00 08/24/18 09:00 Temperature 98.6 F Pulse Rate 92 H 113 H 108 H Respiratory Rate 16 Blood Pressure 113/57 L Pulse Oximetry 95 08/24/18 10:00 08/24/18 11:00 08/24/18 12:00 Temperature 98.9 F Pulse Rate 100 H 84 93 H Respiratory Rate 18 Blood Pressure 127/60 Pulse Oximetry 95 Intake & Output 08/23/18 08/24/18 08/24/18 18:59 06:59 18:59 Intake Total 1540 / 1540 1000 / 1000 Output Total 1200 / 1200 450 / 450 Balance 340 / 340 550 / 550 Weight 55 kg Intake: IV 1000 / 1000 1000 / 1000 NS Inj 1,000 ML @ 70 mls/hr IV. 1000 / 1000 1000 / 1000 CONT .[id number] [facility] Rx#:[id number] Oral 340 / 340 Anesthesia Amount 200 / 200 Output: Stool 200 / 200 200 / 200 Urine Amount (Catheter) 1000 / 1000 250 / 250 Indwelling Urethral Catheter 1000 / 1000 250 / 250 Other: Date of Last Bowel Movement 08/23/18 08/24/18 08/24/18 # Bowel Movements 4 Narrative: Gen.: Pleasant 88-year-old female, cachectic, appears in no acute distress Cardiovascular: Tachycardic. Irregularly irregular rhythm. No murmurs/rubs/ gallops. Respiratory: Lungs clear to auscultation bilaterally. No wheezes or rhonchi. Abdomen: Soft, diffusely tender to palpation, nondistended. No peritoneal signs. Musculoskeletal: No gross deformities. No edema. Skin: Pale. No obvious rashes or erythema. Neuro: Awake and alert. Sensory and motor grossly intact. Cranial nerves grossly intact. Normal speech. Urinary Catheter Management Indwelling Urethral Catheter: Cath placed during this visit: yes, but has since been removed by the nurse Reason for continuing: Decision to DC catheter Insertion date: 08/22/18 Insertion time: 00:09 Removal date: 08/24/18 Removal time: 09:30 Results Labs CBC & Chem 7: 08/22/18 21:40 08/22/18 05:30 Assessment and Plan (1) GI bleed: Code(s): K92.2 - Gastrointestinal hemorrhage, unspecified Status: Acute Plan 1. Atrial fibrillation with rapid ventricular response EKG shows A. fib with RVR Patient is an extremely poor historian however is on diltiazem at home. States she was previously diagnosed with atrial flutter once. Does not take any systemic anticoagulation Diltiazem bolus and drip Continue home diltiazem Wean drip as tolerated, Stop cardizem drip if HR< 90 sustained and turn back on if HT sustained > 110 2. 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 Biopsies were taken and are pending at this time. GS consulted does not recommend any surgical intervention at this time however potential treatment options with the patient including surgery andradiation for both benign and malignant type lesions. The patient and family - doesn't want any surgical intervention at this time. 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 Start iron supplement Transfuse as needed IV Protonix Gastroenterology consulted, appreciate assistance s/p EGD as above -S/p colonoscopy Patient is with h/o right hemicolectomy. Erosions at anastomosis .Bx taken Cachectic, severe prot patrick malnutrition will order prealbumin. add ensure 2. A pedunculated polyp measuring .8 cm in size was found in the transverse colon; polypectomy was performed using snare cautery 3. Moderate diverticulosis was noted in the descending colon and sigmoid colon 4. Retroflexed views revealed internal hemorrhoids 5. Retroflexed views revealed medium internal hemorrhoids 6. Revealed no abnormalities of the rectum Return 1 year Colonoscopy 3. Elevated d-dimer/intermittent shortness of breath VQ scan pending as patient just received contrast with her CT abdomen/pelvis 4. Hypertension/hyperlipidemia Continue home medications Advance diet per GI recs Electrolytes: Monitor and replete as needed Holding pharmacologic anticoagulation for GI bleed Patient with duodenal mass not an indication for emergent surgery. Cleared by GS for DC. Patient to follow up as OP. PT recommends SNF. Patient is from [place], is bringing insurance and CM is following for DC plan Progress Note: Quality VTE Deep Vein Thrombosis/Pulmonary Embolism Present on Admission: No _ (1) GI bleed Qualifiers: GI bleed type/associated pathology: unspecified gastrointestinal hemorrhage type Gastritis type: Qualified Code(s): K92.2 - Gastrointestinal hemorrhage, unspecified
--- NOTE | 2018-08-24 13:29 | P.PNGI ---
Subjective Interval history: Patient awake and alert, sitting up in chair at bedside with present. Patient denies nausea or vomiting, states tolerating clear liquids. Denies bleeding, denies abdominal pain. Post EGD colonoscopy Duodenal mass revealed Physical Exam Vital signs: Vital Signs 08/23/18 15:00 08/23/18 15:08 08/23/18 16:00 Temperature 98.4 F Pulse Rate 98 H 82 92 H Respiratory Rate 17 Blood Pressure 125/49 L Pulse Oximetry 08/23/18 17:00 08/23/18 18:00 08/23/18 19:00 Temperature Pulse Rate 98 H 104 H 98 H Respiratory Rate Blood Pressure Pulse Oximetry 08/23/18 20:00 08/23/18 21:00 08/23/18 22:00 Temperature 98.8 F Pulse Rate 102 H 102 H 108 H Respiratory Rate 20 Blood Pressure 125/74 Pulse Oximetry 97 08/23/18 23:00 08/24/18 00:00 08/24/18 01:00 Temperature 98.2 F Pulse Rate 98 H 94 H 90 Respiratory Rate 20 Blood Pressure 128/65 Pulse Oximetry 98 08/24/18 02:00 08/24/18 03:00 08/24/18 04:00 Temperature Pulse Rate 92 H 96 H 99 H Respiratory Rate 18 Blood Pressure 132/66 Pulse Oximetry 91 L 08/24/18 05:00 08/24/18 06:00 08/24/18 07:00 Temperature Pulse Rate 100 H 99 H 92 H Respiratory Rate Blood Pressure Pulse Oximetry 08/24/18 08:00 08/24/18 09:00 08/24/18 10:00 Temperature 98.6 F Pulse Rate 113 H 108 H 100 H Respiratory Rate 16 Blood Pressure 113/57 L Pulse Oximetry 95 08/24/18 11:00 08/24/18 12:00 08/24/18 12:42 Temperature 98.9 F Pulse Rate 84 101 H 99 H Respiratory Rate 18 Blood Pressure 127/60 Pulse Oximetry 95 Intake & Output 08/23/18 08/24/18 08/24/18 18:59 06:59 18:59 Intake Total 1540 / 1540 1000 / 1000 Output Total 1200 / 1200 450 / 450 Balance 340 / 340 550 / 550 Weight 55 kg Intake: IV 1000 / 1000 1000 / 1000 NS Inj 1,000 ML @ 70 mls/hr IV. 1000 / 1000 1000 / 1000 CONT .[id number] [facility] Rx#:[id number] Oral 340 / 340 Anesthesia Amount 200 / 200 Output: Stool 200 / 200 200 / 200 Urine Amount (Catheter) 1000 / 1000 250 / 250 Indwelling Urethral Catheter 1000 / 1000 250 / 250 Other: Date of Last Bowel Movement 08/23/18 08/24/18 08/24/18 # Bowel Movements 4 - Constitutional no acute distress, cooperative - Routine HEENT Exam Head: Present: normocephalic ENT: Present: mucous membranes moist - Routine Neck Exam Present: supple, trachea midline - Routine Cardiovascular Exam Present: S1, S2 - Routine Abdominal Exam Present: soft, normoactive bowel sounds, tenderness. Absent: distended, firm Comments: Mild tenderness on palpation during exam - Routine Extremities Exam Absent: edema - Routine Skin Exam Present: dry, warm - Routine Neurological Exam Present: alert, oriented X3 - Urinary Catheter Management Indwelling Urethral Catheter Cath placed during this visit: yes, but has since been removed by the nurse Reason for continuing: Decision to DC catheter Insertion date: 08/22/18 Insertion time: 00:09 Removal date: 08/24/18 Removal time: 09:30 Results - Labs CBC & Chem 7: 08/22/18 21:40 08/22/18 05:30 Assessment and Plan (1) GI bleed Status: Acute Code(s): K92.2 - Gastrointestinal hemorrhage, unspecified - Plan 1. Acute GI bleeding with hematemesis and hematochezia following what sounds like acute gastroenteritis. 2. Acute GI blood loss anemia 3. History of colon cancer status post right hemicolectomy. 08/24/2018 -GI bleed with hematemesis and hematochezia-patient denies nausea or vomiting, denies any noted bleeding in stools -History of colon CA post right hemicolectomy -Duodenal mass Post EGD : The esophagus appeared normal The mucosa of the stomach appeared normal Normal duodenal mucosa in the duodenal bulb Circumferential mass was found in the 2nd part of the duodenum; obstructing lumen Retroflexed views revealed no abnormalities Colonoscopy S/P right hemicolectomy. Erosions at anastomosis .Bx taken A pedunculated polyp measuring .8 cm in size was found in the transverse colon; polypectomy was performed using snare cautery Moderate diverticulosis was noted in the descending colon and sigmoid colon Retroflexed views revealed internal hemorrhoids Retroflexed views revealed medium internal hemorrhoids Revealed no abnormalities of the rectum (08/22)-hemoglobin 8.5 hematocrit 27.8 Plan -Clear liquid diet-advance as tolerated -Biopsy results pending -EGD as needed -Colonoscopy in 1 year -Monitor hemoglobin and hematocrit -Monitor for active bleeding -Antiemetics and analgesics as per attending -Continue PPI -Case management consult-to assist with discharge planning -Supportive care -General surgery following-per chart review, patient to follow-up as outpatient -Patient stable from GI standpoint for discharge home--patient and spouse instructed to follow-up for biopsy results -GI will sign off at this time, please notify for any further assistance This patient has been seen by myself and Dr. Welsh and this note is written on his behalf - Attending Attestation Dr. Welsh (1) GI bleed Qualifiers: GI bleed type/associated pathology: unspecified gastrointestinal hemorrhage type Qualified Code(s): K92.2 - Gastrointestinal hemorrhage, unspecified
[2018-08-25] MEDS: Sod Chloride 0.9% Inj 1,000 ML IV.CONT SCH ×2 (02:51→22:35)
[2018-08-25] MEDS: dilTIAZem CD 300 MG Capsule PO SCH (09:04)
[2018-08-25] MEDS: guaiFENesin 600 MG ER Tablet PO SCH ×2 (09:04→21:50)
[2018-08-25] MEDS: Pantoprazole Inj 40 MG Vial IV.PUSH SCH ×2 (09:06→21:50)
--- NOTE | 2018-08-25 10:14 | P.PNIM ---
Subjective Interval history: The patient is the margin of the bed she is complaining of nausea no vomiting. Had a bowel movement dark cade color diarrhea no blood in it. Heart rate is better controlled no palpitations. Feels very weak however she was able to get out of the bed with multiple assist. No more bleeding no vomiting blood. No chest pain. + sob on 5 L by nasal cannula Discussed with oncology and internal medicine doctors in [place] or willing to accept patient to their service. Discussed with the case management who is working on the case. Physical Exam Vital signs: Vital Signs 08/24/18 11:00 08/24/18 12:00 08/24/18 12:42 Temperature 98.9 F Pulse Rate 84 101 H 99 H Respiratory Rate 18 Blood Pressure 127/60 Pulse Oximetry 95 08/24/18 14:00 08/24/18 15:00 08/24/18 15:52 Temperature 98.9 F Pulse Rate 96 H 92 H 80 Respiratory Rate 16 Blood Pressure 121/54 L Pulse Oximetry 97 08/24/18 16:00 08/24/18 16:01 08/24/18 17:32 Temperature Pulse Rate 92 H 90 98 H Respiratory Rate Blood Pressure Pulse Oximetry 08/24/18 19:00 08/24/18 20:00 08/24/18 21:00 Temperature Pulse Rate 96 H 120 H 120 H Respiratory Rate 18 Blood Pressure 125/85 Pulse Oximetry 92 L 08/24/18 22:00 08/24/18 23:00 08/25/18 00:00 Temperature Pulse Rate 112 H 102 H 104 H Respiratory Rate 16 Blood Pressure Pulse Oximetry 08/25/18 01:00 08/25/18 02:00 08/25/18 03:00 Temperature Pulse Rate 102 H 100 H 102 H Respiratory Rate Blood Pressure Pulse Oximetry 08/25/18 04:00 08/25/18 05:00 08/25/18 06:00 Temperature 99.0 F Pulse Rate 110 H 110 H 123 H Respiratory Rate 20 Blood Pressure 128/62 Pulse Oximetry 91 L Intake & Output 08/24/18 08/25/18 08/25/18 18:59 06:59 18:59 Intake Total 1745 / 1745 240 / 240 Output Total 600 / 600 Balance 1145 / 1145 240 / 240 Weight 52 kg Intake: IV 1125 / 1125 Cardizem Inj 125 MG In NS Inj 125 / 125 100 ML @ 5 MG/HR 5 mls/hr IV. CONT TITRATE PRN Rx#:[id number] LR 1000 mL Inj 1,000 ML @ 30 1000 / 1000 mls/hr IV.SIG .Q24H [facility] Rx#: [id number] Oral 620 / 620 240 / 240 Output: Urine 600 / 600 Other: # Voids 200 Date of Last Bowel Movement 08/24/18 08/24/18 # Bowel Movements 1 Narrative: Gen.: Pleasant 88-year-old female, cachectic, appears in no acute distress Cardiovascular: Tachycardic. Irregularly irregular rhythm. No murmurs/rubs/ gallops. Respiratory: Lungs clear to auscultation bilaterally. No wheezes or rhonchi. Abdomen: Soft, diffusely tender to palpation, nondistended. No peritoneal signs. Musculoskeletal: No gross deformities. No edema. Skin: Pale. No obvious rashes or erythema. Neuro: Awake and alert. Sensory and motor grossly intact. Cranial nerves grossly intact. Normal speech. Urinary Catheter Management Indwelling Urethral Catheter: Cath placed during this visit: yes, but has since been removed by the nurse Reason for continuing: Decision to DC catheter Insertion date: 08/22/18 Insertion time: 00:09 Removal date: 08/24/18 Removal time: 09:30 Results Labs CBC & Chem 7: 08/26/18 11:05 08/27/18 05:51 Assessment and Plan (1) GI bleed: Code(s): K92.2 - Gastrointestinal hemorrhage, unspecified Status: Acute Plan 1. Atrial fibrillation with rapid ventricular response EKG shows A. fib with RVR Patient is an extremely poor historian however is on diltiazem at home. States she was previously diagnosed with atrial flutter once. Does not take any systemic anticoagulation Diltiazem bolus and drip Continue home diltiazem Wean drip as tolerated, Stop cardizem drip if HR< 90 sustained and turn back on if HT sustained > 110 Replenish electrolytes 2. 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 Biopsies were taken and are pending at this time. GS consulted does not recommend any surgical intervention at this time however potential treatment options with the patient including surgery andradiation for both benign and malignant type lesions. The patient and family - doesn't want any surgical intervention at this time. 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 Start iron supplement Transfuse as needed IV Protonix Gastroenterology consulted, appreciate assistance s/p EGD as above -S/p colonoscopy Patient is with h/o right hemicolectomy. Erosions at anastomosis .Bx taken Cachectic, severe prot patrick malnutrition . add ensure 2. A pedunculated polyp measuring .8 cm in size was found in the transverse colon; polypectomy was performed using snare cautery 3. Moderate diverticulosis was noted in the descending colon and sigmoid colon 4. Retroflexed views revealed internal hemorrhoids 5. Retroflexed views revealed medium internal hemorrhoids 6. Revealed no abnormalities of the rectum Return 1 year Colonoscopy 3. Elevated d-dimer/intermittent shortness of breath VQ scan neg as patient just received contrast with her CT abdomen/pelvis 4. Hypertension/hyperlipidemia Continue home medications Advance diet per GI recs Electrolytes: Monitor and replete as needed Holding pharmacologic anticoagulation for GI bleed Patient with duodenal mass not an indication for emergent surgery. Cleared by GS for DC. Patient to follow up as OP. PT recommends SNF. Patient is from [place], is bringing insurance and CM is following for DC plan Discussed with oncology and internal medicine doctors in [place] or willing to accept patient into their service. Discussed with case management who is working on the case. Dr Leahy oncology at [facility], will be consulted or will accept patient on oncology service once biopsy available Dr Rizzo Internal medicine at [facility] who accepted patient under his care Progress Note: Quality VTE Deep Vein Thrombosis/Pulmonary Embolism Present on Admission: No _ (1) GI bleed Qualifiers: GI bleed type/associated pathology: unspecified gastrointestinal hemorrhage type Gastritis type: Qualified Code(s): K92.2 - Gastrointestinal hemorrhage, unspecified
[2018-08-25] MEDS ORDERED: Simethicone 80 MG Chew Tablet PO PRN (11:17)
[2018-08-26] MEDS: dilTIAZem CD 300 MG Capsule PO SCH (08:45)
[2018-08-26] MEDS: Pantoprazole Inj 40 MG Vial IV.PUSH SCH ×2 (08:45→20:08)
[2018-08-26] MEDS: guaiFENesin 600 MG ER Tablet PO SCH ×2 (08:45→20:08)
[2018-08-26 11:20] LABS: Baso % (Auto) 0.1 % (0.0-2.0); Eos % (Auto) 0.4 % (0.0-4.0); Hematocrit 27.5 % (35.0-46.0); Hemoglobin 8.5 gm/dL (11.6-15.3); Lymph # (Auto) 0.8 th/mm3 (1.0-4.8); Lymph % (Auto) 7.9 % (9.0-44.0); Mean Corpuscular Hemoglobin 23.1 pg (27.0-34.0); Mean Corpuscular Volume 74.9 fL (80.0-100.0); Mean Platelet Volume 8.3 fL (7.0-11.0); Mono # (Auto) 0.9 th/mm3 (0.0-0.9); Mono % (Auto) 9.1 % (0.0-8.0); Neut # (Auto) 8.1 th/mm3 (1.8-7.7); Neut % (Auto) 82.5 % (16.0-70.0); Platelet Count 375 th/mm3 (150-450); Red Blood Count 3.67 mil/mm3 (4.00-5.30); Red Cell Distribution Width 16.9 % (11.6-17.2); White Blood Count 9.8 th/mm3 (4.0-11.0)
[2018-08-26 11:22] LABS: Mean Corpuscular HGB Conc 30.8 % (32.0-36.0)
[2018-08-26] MEDS: Lactobacillus Acidophilus/L. Spores Tablet PO SCH (11:38)
[2018-08-26] MEDS: Sod Chloride 0.9% Inj 1,000 ML IV.CONT SCH ×2 (11:38→22:20)
[2018-08-26 11:41] LABS: Carbon Dioxide 17.7 meq/L (21.0-32.0); Magnesium 1.8 mg/dL (1.5-2.5); Potassium 3.2 meq/L (3.5-5.1)
--- NOTE | 2018-08-26 14:35 | P.PNIM ---
Subjective Interval history: With diarrhea. Some nausea no vomiting. No fever or chills. HR is noted elevated with movement. No cp or sob. Denies abdominal pain. Physical Exam Vital signs: Vital Signs 08/25/18 15:00 08/25/18 16:00 08/25/18 17:00 Temperature 98.3 F Pulse Rate 80 104 H 100 H Respiratory Rate 20 Blood Pressure 124/77 Pulse Oximetry 93 L 08/25/18 18:00 08/25/18 19:00 08/25/18 20:00 Temperature 99.0 F Pulse Rate 107 H 104 H 116 H Respiratory Rate 18 Blood Pressure 128/77 Pulse Oximetry 94 L 08/25/18 21:00 08/25/18 22:00 08/25/18 23:00 Temperature Pulse Rate 114 H 118 H 111 H Respiratory Rate Blood Pressure Pulse Oximetry 08/26/18 00:00 08/26/18 01:00 08/26/18 02:00 Temperature 99.1 F Pulse Rate 111 H 122 H 114 H Respiratory Rate 18 Blood Pressure 109/58 L Pulse Oximetry 94 L 08/26/18 03:00 08/26/18 04:00 08/26/18 05:00 Temperature 99.6 F Pulse Rate 114 H 110 H 114 H Respiratory Rate 18 Blood Pressure 122/76 Pulse Oximetry 92 L 08/26/18 06:00 08/26/18 07:00 08/26/18 07:32 Temperature 98 F Pulse Rate 110 H 125 H 107 H Respiratory Rate 17 Blood Pressure 120/69 Pulse Oximetry 94 L 08/26/18 08:00 08/26/18 09:00 08/26/18 10:00 Temperature Pulse Rate 114 H 125 H 114 H Respiratory Rate Blood Pressure Pulse Oximetry 08/26/18 11:00 08/26/18 11:34 Temperature 98.2 F Pulse Rate 106 H 106 H Respiratory Rate 17 Blood Pressure 117/70 Pulse Oximetry 95 Intake & Output 08/25/18 08/26/18 08/26/18 18:59 06:59 18:59 Intake Total 240 / 240 1000 / 1000 Balance 240 / 240 1000 / 1000 Weight 52.1 kg Intake: IV 1000 / 1000 NS Inj 1,000 ML @ 70 mls/hr IV. 1000 / 1000 CONT .[id number] [facility] Rx#:[id number] Oral 240 / 240 Other: # Voids 2 Date of Last Bowel Movement 08/26/18 08/26/18 Narrative: Gen.: Pleasant 88-year-old female, cachectic, appears in no acute distress Cardiovascular: Tachycardic. Irregularly irregular rhythm. No murmurs/rubs/ gallops. Respiratory: Lungs clear to auscultation bilaterally. No wheezes or rhonchi. Abdomen: Soft, diffusely tender to palpation, nondistended. No peritoneal signs. Musculoskeletal: No gross deformities. No edema. Skin: Pale. No obvious rashes or erythema. Neuro: Awake and alert. Sensory and motor grossly intact. Cranial nerves grossly intact. Normal speech. Urinary Catheter Management Indwelling Urethral Catheter: Cath placed during this visit: yes, but has since been removed by the nurse Reason for continuing: Decision to DC catheter Insertion date: 08/22/18 Insertion time: 00:09 Removal date: 08/24/18 Removal time: 09:30 Results Labs CBC & Chem 7: 08/26/18 11:05 08/27/18 05:51 Assessment and Plan (1) GI bleed: Code(s): K92.2 - Gastrointestinal hemorrhage, unspecified Status: Acute Plan 1. Atrial fibrillation with rapid ventricular response EKG shows A. fib with RVR Patient is an extremely poor historian however is on diltiazem at home. States she was previously diagnosed with atrial flutter once. Does not take any systemic anticoagulation Diltiazem bolus and drip Continue home diltiazem Wean drip as tolerated, Stop cardizem drip if HR< 90 sustained and turn back on if HT sustained > 110 Diltiazem increased 2. 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 Biopsies were taken and are pending at this time. GS consulted does not recommend any surgical intervention at this time however potential treatment options with the patient including surgery andradiation for both benign and malignant type lesions. The patient and family - doesn't want any surgical intervention at this time. 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 Start iron supplement Transfuse as needed IV Protonix, switch to PO Gastroenterology consulted, appreciate assistance s/p EGD as above -S/p colonoscopy: Patient is with h/o right hemicolectomy. Erosions at anastomosis .Bx taken Cachectic, severe prot patrick malnutrition, add ensure 2. A pedunculated polyp measuring .8 cm in size was found in the transverse colon; polypectomy was performed using snare cautery 3. Moderate diverticulosis was noted in the descending colon and sigmoid colon 4. Retroflexed views revealed internal hemorrhoids 5. Retroflexed views revealed medium internal hemorrhoids 6. Revealed no abnormalities of the rectum Return 1 year Colonoscopy 3. Elevated d-dimer/intermittent shortness of breath VQ scan neg as patient just received contrast with her CT abdomen/pelvis 4. Hypertension/hyperlipidemia Continue home medications Advance diet per GI recs Electrolytes: Monitor and replete as needed Holding pharmacologic anticoagulation for GI bleed Patient with duodenal mass not an indication for emergent surgery. Cleared by GS for DC. Patient to follow up as OP. PT recommends SNF. Patient is from [place], is bringing insurance and CM is following for DC plan On 08/25/18 Discussed with oncology and internal medicine doctors in [place] or willing to accept patient into their service. Discussed with case management who is working on the case. Dr Leahy oncology at [facility], will be consulted or will accept patient on oncology service once biopsy available Dr Rizzo Internal medicine at [facility] who accepted patient under his care 08/27: discussed again In [place] patient is accepted at different Hospital as no beds available In [facility] Discussed with the case management, arrangements are done for DC to [facility] on 08/27/18 Progress Note: Quality VTE Deep Vein Thrombosis/Pulmonary Embolism Present on Admission: No _ (1) GI bleed Qualifiers: GI bleed type/associated pathology: unspecified gastrointestinal hemorrhage type Gastritis type: Qualified Code(s): K92.2 - Gastrointestinal hemorrhage, unspecified
--- NOTE | 2018-08-26 17:20 | P.PNGS ---
Subjective Patient reports: feels better (Hemoglobin stable) Physical Exam Vital signs: Vital Signs 08/25/18 18:00 08/25/18 19:00 08/25/18 20:00 Temperature 99.0 F Pulse Rate 107 H 104 H 116 H Respiratory Rate 18 Blood Pressure 128/77 Pulse Oximetry 94 L 08/25/18 21:00 08/25/18 22:00 08/25/18 23:00 Temperature Pulse Rate 114 H 118 H 111 H Respiratory Rate Blood Pressure Pulse Oximetry 08/26/18 00:00 08/26/18 01:00 08/26/18 02:00 Temperature 99.1 F Pulse Rate 111 H 122 H 114 H Respiratory Rate 18 Blood Pressure 109/58 L Pulse Oximetry 94 L 08/26/18 03:00 08/26/18 04:00 08/26/18 05:00 Temperature 99.6 F Pulse Rate 114 H 110 H 114 H Respiratory Rate 18 Blood Pressure 122/76 Pulse Oximetry 92 L 08/26/18 06:00 08/26/18 07:00 08/26/18 07:32 Temperature 98 F Pulse Rate 110 H 125 H 107 H Respiratory Rate 17 Blood Pressure 120/69 Pulse Oximetry 94 L 08/26/18 08:00 08/26/18 09:00 08/26/18 10:00 Temperature Pulse Rate 114 H 125 H 114 H Respiratory Rate Blood Pressure Pulse Oximetry 08/26/18 11:00 08/26/18 11:34 08/26/18 12:00 Temperature 98.2 F Pulse Rate 106 H 106 H 112 H Respiratory Rate 17 Blood Pressure 117/70 Pulse Oximetry 95 08/26/18 13:00 08/26/18 14:00 08/26/18 15:00 Temperature Pulse Rate 92 H 94 H 78 Respiratory Rate Blood Pressure Pulse Oximetry 08/26/18 15:16 08/26/18 16:00 Temperature 98 F Pulse Rate 76 85 Respiratory Rate 16 Blood Pressure 109/49 L Pulse Oximetry 96 Intake & Output 08/25/18 08/26/18 08/26/18 18:59 06:59 18:59 Intake Total 240 / 240 1000 / 1000 Balance 240 / 240 1000 / 1000 Weight 52.1 kg Intake: IV 1000 / 1000 NS Inj 1,000 ML @ 70 mls/hr IV. 1000 / 1000 CONT .[id number] [facility] Rx#:[id number] Oral 240 / 240 Other: # Voids 2 Date of Last Bowel Movement 08/26/18 08/26/18 - Constitutional no acute distress - Routine Abdominal Exam Present: soft, normoactive bowel sounds. Absent: tenderness, distended, rebound , guarding - Urinary Catheter Management Indwelling Urethral Catheter Cath placed during this visit: yes, but has since been removed by the nurse Reason for continuing: Decision to DC catheter Insertion date: 08/22/18 Insertion time: 00:09 Removal date: 08/24/18 Removal time: 09:30 Results - Labs 08/26/18 11:05 08/26/18 11:05 Laboratory Results - last 24 hr 08/26/18 08/26/18 11:05 11:05 WBC 9.8 RBC 3.67 L Hgb 8.5 L Hct 27.5 L MCV 74.9 L MCH 23.1 L MCHC 30.8 L RDW 16.9 Plt Count 375 MPV 8.3 Neut % (Auto) 82.5 H Lymph % (Auto) 7.9 L [place] % (Auto) 9.1 H Eos % (Auto) 0.4 Baso % (Auto) 0.1 Neut # (Auto) 8.1 H Lymph # (Auto) 0.8 L [place] # (Auto) 0.9 Eos # (Auto) 0.0 Baso # (Auto) 0.0 WBC Differential . Differential Comment Auto diff final Sodium 137 Potassium 3.2 L Chloride 111 H Carbon Dioxide 17.7 L Anion Gap 8 BUN 11 Creatinine 1.06 H Estimated GFR 49 L Random Glucose 97 Calcium 8.0 L Magnesium 1.8 - Imaging Imaging: ITS Impressions Abdomen/Pelvis CT 08/21/18 17:59 CONCLUSION: 1. Status post right hemicolectomy and hysterectomy. 2 gallstones within a noninflamed gallbladder. No etiology for abdominal pain is identified. No evidence of bowel obstruction. Chest X-Ray 08/21/18 20:20 CONCLUSION: Mild pulmonary vascular congestion. No focal infiltrate. Pulmonary Perfusion Imaging 08/22/18 00:21 CONCLUSION: Low probability scan for pulmonary embolism Head CT 08/22/18 20:10 CONCLUSION: No acute intracranial findings. . Chest CTA 08/22/18 22:13 CONCLUSION: 1. No evidence of pulmonary embolus. 2. 4 mm right midlung nodular density. Patient has a history of colon cancer. Recommend six-month follow-up noncontrast chest CT. 3. Small bilateral pleural effusions. 4. Moderate severity dependent atelectasis of the lower lobes. Patchy atelectasis lingula and right middle lobe. 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 Patient's hemoglobin and vital signs are very stable. No indication for intervention emergently. Long discussion with patient about treatment options, including elective surgery. Patient would like to return home to [place] for evaluation and treatment. Patient can discharge home from surgery standpoint. (1) GI bleed Qualifiers: GI bleed type/associated pathology: unspecified gastrointestinal hemorrhage type Qualified Code(s): K92.2 - Gastrointestinal hemorrhage, unspecified
--- NOTE | 2018-08-26 18:37 | P.PNGI ---
Subjective Interval history: Patient awake and alert States feeling better Biopsy results reviewed Physical Exam Vital signs: Vital Signs 08/25/18 19:00 08/25/18 20:00 08/25/18 21:00 Temperature 99.0 F Pulse Rate 104 H 116 H 114 H Respiratory Rate 18 Blood Pressure 128/77 Pulse Oximetry 94 L 08/25/18 22:00 08/25/18 23:00 08/26/18 00:00 Temperature 99.1 F Pulse Rate 118 H 111 H 111 H Respiratory Rate 18 Blood Pressure 109/58 L Pulse Oximetry 94 L 08/26/18 01:00 08/26/18 02:00 08/26/18 03:00 Temperature Pulse Rate 122 H 114 H 114 H Respiratory Rate Blood Pressure Pulse Oximetry 08/26/18 04:00 08/26/18 05:00 08/26/18 06:00 Temperature 99.6 F Pulse Rate 110 H 114 H 110 H Respiratory Rate 18 Blood Pressure 122/76 Pulse Oximetry 92 L 08/26/18 07:00 08/26/18 07:32 08/26/18 08:00 Temperature 98 F Pulse Rate 125 H 107 H 114 H Respiratory Rate 17 Blood Pressure 120/69 Pulse Oximetry 94 L 08/26/18 09:00 08/26/18 10:00 08/26/18 11:00 Temperature Pulse Rate 125 H 114 H 106 H Respiratory Rate Blood Pressure Pulse Oximetry 08/26/18 11:34 08/26/18 12:00 08/26/18 13:00 Temperature 98.2 F Pulse Rate 106 H 112 H 92 H Respiratory Rate 17 Blood Pressure 117/70 Pulse Oximetry 95 08/26/18 14:00 08/26/18 15:00 08/26/18 15:16 Temperature 98 F Pulse Rate 94 H 78 76 Respiratory Rate 16 Blood Pressure 109/49 L Pulse Oximetry 96 08/26/18 16:00 08/26/18 17:00 08/26/18 18:00 Temperature Pulse Rate 85 100 H 120 H Respiratory Rate Blood Pressure Pulse Oximetry Intake & Output 08/25/18 08/26/18 08/26/18 18:59 06:59 18:59 Intake Total 240 / 240 1000 / 1000 Balance 240 / 240 1000 / 1000 Weight 52.1 kg Intake: IV 1000 / 1000 NS Inj 1,000 ML @ 70 mls/hr IV. 1000 / 1000 CONT .[id number] [facility] Rx#:[id number] Oral 240 / 240 Other: # Voids 2 Date of Last Bowel Movement 08/26/18 08/26/18 - Constitutional no acute distress, cooperative - Routine HEENT Exam Head: Present: normocephalic - Routine Respiratory Exam Present: accessory muscle use, CTA bilaterally - Routine Abdominal Exam Present: soft, normoactive bowel sounds, tenderness. Absent: distended - Routine Extremities Exam Absent: edema - Routine Skin Exam Present: dry, warm - Routine Neurological Exam Present: alert, oriented X3 - Routine Psychiatric Exam Present: normal affect, cooperative - Urinary Catheter Management Indwelling Urethral Catheter Cath placed during this visit: yes, but has since been removed by the nurse Reason for continuing: Decision to DC catheter Insertion date: 08/22/18 Insertion time: 00:09 Removal date: 08/24/18 Removal time: 09:30 Results - Labs CBC & Chem 7: 08/26/18 11:05 08/26/18 11:05 Laboratory Results - last 24 hr 08/26/18 08/26/18 11:05 11:05 WBC 9.8 RBC 3.67 L Hgb 8.5 L Hct 27.5 L MCV 74.9 L MCH 23.1 L MCHC 30.8 L RDW 16.9 Plt Count 375 MPV 8.3 Neut % (Auto) 82.5 H Lymph % (Auto) 7.9 L [place] % (Auto) 9.1 H Eos % (Auto) 0.4 Baso % (Auto) 0.1 Neut # (Auto) 8.1 H Lymph # (Auto) 0.8 L [place] # (Auto) 0.9 Eos # (Auto) 0.0 Baso # (Auto) 0.0 WBC Differential . Differential Comment Auto diff final Sodium 137 Potassium 3.2 L Chloride 111 H Carbon Dioxide 17.7 L Anion Gap 8 BUN 11 Creatinine 1.06 H Estimated GFR 49 L Random Glucose 97 Calcium 8.0 L Magnesium 1.8 Assessment and Plan (1) GI bleed Status: Acute Code(s): K92.2 - Gastrointestinal hemorrhage, unspecified - Plan 1. Acute GI bleeding with hematemesis and hematochezia following what sounds like acute gastroenteritis. 2. Acute GI blood loss anemia 3. History of colon cancer status post right hemicolectomy. 08/24/2018 -GI bleed with hematemesis and hematochezia-patient denies nausea or vomiting, denies any noted bleeding in stools -History of colon CA post right hemicolectomy -Duodenal mass Post EGD : The esophagus appeared normal The mucosa of the stomach appeared normal Normal duodenal mucosa in the duodenal bulb Circumferential mass was found in the 2nd part of the duodenum; obstructing lumen Retroflexed views revealed no abnormalities Colonoscopy S/P right hemicolectomy. Erosions at anastomosis .Bx taken A pedunculated polyp measuring .8 cm in size was found in the transverse colon; polypectomy was performed using snare cautery Moderate diverticulosis was noted in the descending colon and sigmoid colon Retroflexed views revealed internal hemorrhoids Retroflexed views revealed medium internal hemorrhoids Revealed no abnormalities of the rectum (08/22)-hemoglobin 8.5 hematocrit 27.8 08/26/2018 GI asked to reevaluate patient based on pathology reports. 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 Plan Clear liquid diet as tolerated EGD as needed Colonoscopy in 1 year Upper GI with small bowel follow-through Antiemetics and analgesics as per attending Supportive care Further recommendations to follow This patient has been seen by myself and Dr. Welsh and this note is written on his behalf - Attending Attestation Dr. Welsh (1) GI bleed Qualifiers: GI bleed type/associated pathology: unspecified gastrointestinal hemorrhage type Qualified Code(s): K92.2 - Gastrointestinal hemorrhage, unspecified
[2018-08-27] MEDS: Sod Chloride 0.9% Inj 1,000 ML IV.CONT SCH (02:10)
[2018-08-27 07:14] LABS: Carbon Dioxide 22.2 meq/L (21.0-32.0); Magnesium 1.6 mg/dL (1.5-2.5)
[2018-08-27 07:50] LABS: Potassium 2.7 meq/L (3.5-5.1)
--- NOTE | 2018-08-27 08:05 | P.DS ---
DS: Providers Date of admission: 08/21/18 23:36 Primary care physician: No Primary Care Physician Consults: 08/22/18 02:02 Consult to Gastroenterology Routine Consulting Provider: Eric Welsh V Reason for Consultation: lower GIB Notified:: Service Spoke with:: Era Date Notified:: 08/22/18 Time Notified:: 07:16 Ordering Provider: ARMAND 08/23/18 12:30 Consult to General Surgery Routine Consulting Provider: Dakota Chauhan General Duty Nurse:: Dakota Chauhan Reason for Consultation: Duodenal Mass Notified:: Service Spoke with:: Debi Date Notified:: 08/23/18 Time Notified:: 13:02 Ordering Provider: NELLY DS: Summary Pleasant 88 yo female with h/o Afib, HLD, anemia, h/o colon CA with hemicolectomy who presented with palpitations, GI bleed, positive FOBT. The patient HGB on admission of 8.5 and remained stable during the hospital stay. Also no overt bleeding. The patient was placed on cardizem drip and then switched to cardizem PO, home dose increased. Also noted hypokalemia , electrolytes were replenishe. GI was consulted patient has EGD and colonoscopy. 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 Patient needs surgical excision. Gen surg onsulted however the patient refused surgery here as patient would like to go back home in [facility] and pursue further evaluation and treatment home. The patient was accepted to the hospital in [place] and was discharge in fairly stable condition by air ambulance. Discussed also [facility] trannsporting the patient and with the admittign doctor. Case management was consulted for DC arrangements, records. 1. Atrial fibrillation with rapid ventricular response EKG shows A. fib with RVR Patient is an extremely poor historian however is on diltiazem at home. States she was previously diagnosed with atrial flutter once. Does not take any systemic anticoagulation Diltiazem bolus and drip Continue home diltiazem Wean drip as tolerated, Stop cardizem drip if HR< 90 sustained and turn back on if HT sustained > 110 Diltiazem increased 2. 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 Biopsies were taken and are pending at this time. GS consulted does not recommend any surgical intervention at this time however potential treatment options with the patient including surgery andradiation for both benign and malignant type lesions. The patient and family - doesn't want any surgical intervention at this time. 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 Start iron supplement Transfuse as needed IV Protonix, switch to PO Gastroenterology consulted, appreciate assistance s/p EGD as above -S/p colonoscopy: Patient is with h/o right hemicolectomy. Erosions at anastomosis .Bx taken Cachectic, severe prot patrick malnutrition, add ensure 2. A pedunculated polyp measuring .8 cm in size was found in the transverse colon; polypectomy was performed using snare cautery 3. Moderate diverticulosis was noted in the descending colon and sigmoid colon 4. Retroflexed views revealed internal hemorrhoids 5. Retroflexed views revealed medium internal hemorrhoids 6. Revealed no abnormalities of the rectum Return 1 year Colonoscopy 3. Elevated d-dimer/intermittent shortness of breath VQ scan neg as patient just received contrast with her CT abdomen/pelvis 4. Hypertension/hyperlipidemia Continue home medications Advance diet per GI recs Electrolytes: Monitor and replete as needed Holding pharmacologic anticoagulation for GI bleed Patient with duodenal mass not an indication for emergent surgery. Cleared by GS for DC. Patient to follow up as OP. PT recommends SNF. Patient is from [place], is bringing insurance and CM is following for DC plan On 08/25/18 Discussed with oncology and internal medicine doctors in [place] or willing to accept patient into their service. Discussed with case management who is working on the case. Dr Leahy oncology at [facility], will be consulted or will accept patient on oncology service once biopsy available Dr Rizzo Internal medicine at [facility] who accepted patient under his care 08/27: discussed again In [place] patient is accepted at different Hospital as no beds available In [facility] Discussed with the case management, arrangements are done for DC to [facility] on 08/27/18 Time Spent with Patient Total time spent providing and/or coordinating discharge services: > 30 min Quality: VTE Deep Vein Thrombosis/Pulmonary Embolism Present on Admission: No Exam Narrative Exam Narrative: GENERAL: Pleasant 88 yo female, appearing chronically ill and weak, however not in acute distress. CARDIOVASCULAR: Irregular rate and rhythm. RESPIRATORY: No accessory muscle use. Clear to auscultation. Breath sounds equal bilaterally. GASTROINTESTINAL: Abdomen soft, non-tender, nondistended. MUSCULOSKELETAL: Extremities without clubbing, cyanosis, or edema. No obvious deformities. NEUROLOGICAL: Awake and alert. No obvious cranial nerve deficits. Motor grossly within normal limits. Five out of 5 muscle strength in the arms and legs. Normal speech. PSYCHIATRIC: Appropriate mood and affect; insight and judgment normal. Results Completed studies during hospitalization: Pending at discharge 08/23/18 12:41 Surgical [PTH] Routine Labs on day of discharge: Labs from last 24 hours 08/27/18 08/26/18 08/26/18 05:51 11:05 11:05 WBC 9.8 RBC 3.67 L Hgb 8.5 L Hct 27.5 L MCV 74.9 L MCH 23.1 L MCHC 30.8 L RDW 16.9 Plt Count 375 MPV 8.3 Neut % (Auto) 82.5 H Lymph % (Auto) 7.9 L [place] % (Auto) 9.1 H Eos % (Auto) 0.4 Baso % (Auto) 0.1 Neut # (Auto) 8.1 H Lymph # (Auto) 0.8 L [place] # (Auto) 0.9 Eos # (Auto) 0.0 Baso # (Auto) 0.0 WBC Differential . Differential Comment Auto diff final Sodium 142 137 Potassium 2.7 L* 3.2 L Chloride 111 H 111 H Carbon Dioxide 22.2 17.7 L Anion Gap 9 8 BUN 10 11 Creatinine 1.06 H 1.06 H Estimated GFR 49 L 49 L Random Glucose 104 97 Calcium 8.0 L 8.0 L Magnesium 1.6 1.8 Impressions ITS Impressions Abdomen/Pelvis CT 08/21/18 17:59 CONCLUSION: 1. Status post right hemicolectomy and hysterectomy. 2 gallstones within a noninflamed gallbladder. No etiology for abdominal pain is identified. No evidence of bowel obstruction. Chest X-Ray 08/21/18 20:20 CONCLUSION: Mild pulmonary vascular congestion. No focal infiltrate. Pulmonary Perfusion Imaging 08/22/18 00:21 CONCLUSION: Low probability scan for pulmonary embolism Head CT 08/22/18 20:10 CONCLUSION: No acute intracranial findings. . Chest CTA 08/22/18 22:13 CONCLUSION: 1. No evidence of pulmonary embolus. 2. 4 mm right midlung nodular density. Patient has a history of colon cancer. Recommend six-month follow-up noncontrast chest CT. 3. Small bilateral pleural effusions. 4. Moderate severity dependent atelectasis of the lower lobes. Patchy atelectasis lingula and right middle lobe. Discharge Plan Discharge Disposition Patient Disposition: Discharge Home Discharge Condition Condition: Stable Discharge Order Discharge Orders: Discharge Order (Routine); Ordered 08/27/18 Ordered By: Leidy Liriano General Surgery Clear for Discharge (Routine); Ordered 08/26/18 Ordered By: Dakota Chauhan Discharge Details Anticipated Discharge Date: 08/27/18 Discharge Comment: DC when arrangements are done and cleared by GI Physicians Team Primary Care Provider: Primary Care Gracia Pinzon Attending Provider: Leidy Liriano Other Providers: Eric Welsh Andrew Rxs /Orders / Referrals /Forms Prescriptions: New diltiazem HCl 300 mg capsule,extended release 24 hr 300 mg PO DAILY Qty: 30 RF: 0 ferrous sulfate 325 mg (65 mg iron) tablet,delayed release (DR/EC) 325 mg PO DAILY Qty: 30 RF: 0 docusate sodium [Colace] 100 mg capsule 100 mg PO DAILY Qty: 30 RF: 0 Continue atorvastatin 40 mg Tablet 40 mg PO QPM RF: 0 telmisartan 80 mg Tablet 80 mg PO DAILY RF: 0 conjugated estrogens [Premarin] 0.3 mg Tablet 0.3 mg PO DAILY RF: 0 Changed rabeprazole 20 mg Tablet,Delayed Release (Dr/Ec) 40 mg PO DAILY Qty: 0 RF: 0 Discontinued diltiazem HCl [Tiazac] 240 mg Capsule,Extended Release 24 Hr 240 mg PO DAILY RF: 0 Ambulatory Orders / Order Sets / DME: Oxygen Tank (2-5 liter) (Routine) Location: Determined by Patient Ordered By: Leidy Liriano Referrals: Primary Care Gracia Pinzon [Primary Care Provider] - See Instructions (PLEASE CALL [facility] AT [phone] TO MAKE A HOSPITAL FOLLOW UP APPT (1WK) ) Discharge Instructions Patient Printed Instructions: Diltiazem (By mouth), A-fib (Atrial Fibrillation ) (DC), Colonoscopy (DC) Additional Instructions: Your Health Problems: Goals to Promote Your Health: * To prevent worsening of your condition * To maintain your health at the optimal level Directions to Meet Your Goals: * Take your medications as prescribed * Follow your dietary instruction * Follow activity as directed * Keep your appointments as scheduled * Take your immunizations and boosters as scheduled * If your symptoms worsen call your PCP * If no PCP go to Urgent Care or Emergency Room Smoking is dangerous to your health. Avoid second hand smoke. You may reach the 24-hour crisis hotline for domestic abuse at . Post Discharge Care Plan Care Plan Goals: Your Health Problems: Goals to Promote Your Health: * To prevent worsening of your condition * To maintain your health at the optimal level Directions to Meet Your Goals: * Take your medications as prescribed * Follow your dietary instruction * Follow activity as directed * Keep your appointments as scheduled * Take your immunizations and boosters as scheduled * If your symptoms worsen call your PCP * If no PCP go to Urgent Care or Emergency Room Smoking is dangerous to your health. Avoid second hand smoke. You may reach the 24-hour [employer] hotline for domestic abuse at . Status ED Status: Left Department Discharge Information Discharge Date/Time: 08/27/18 11:45
[2018-08-27] MEDS ORDERED: Magnesium Oxide 400 MG Tablet PO ONE (08:09)
[2018-08-27] MEDS: Pantoprazole Inj 40 MG Vial IV.PUSH SCH (09:28)
[2018-08-27] MEDS: dilTIAZem CD 300 MG Capsule PO SCH (09:29)
[2018-08-27] MEDS: Lactobacillus Acidophilus/L. Spores Tablet PO SCH (09:29)
[2018-08-27] MEDS: guaiFENesin 600 MG ER Tablet PO SCH (09:29)
[2018-08-27] MEDS ORDERED: Potassium Bicarbonate 25 MEQ Effervescent Tablet PO ONE (11:35)
[2018-08-27] MEDS ORDERED: Potassium Phosphate 500 MG Soluble Tablet PO ONE (11:35)
== END 2018-08-27 11:45 | disposition short-term general hospital (02) | DRG 374 ==
LOC: NEPE 17:32 → NEDA 23:36 → HCIN 08-22 13:48
PROVIDERS: ADMIT Hospitalist; ATTEND Hospitalist
PROC: PANENDO (2018-08-23 09:55)
PROC: COLONOS (2018-08-23 09:55)
DX: R00.0 Tachycardia, unspecified; K92.0 Hematemesis; D12.3 Benign neoplasm of transverse colon; K28.9 Gastrojejunal ulcer, unspecified as acute or chronic, without hemorrhage or perforation; K57.30 Diverticulosis of large intestine without perforation or abscess without bleeding; R33.9 Retention of urine, unspecified; E87.6 Hypokalemia; R64 Cachexia; C17.0 Malignant neoplasm of duodenum; E43 Unspecified severe protein-calorie malnutrition; K64.8 Other hemorrhoids; Z87.891 Personal history of nicotine dependence; K80.20 Calculus of gallbladder without cholecystitis without obstruction; Z80.0 Family history of malignant neoplasm of digestive organs; Z68.22 Body mass index [BMI] 22.0-22.9, adult; I10 Essential (primary) hypertension; E78.5 Hyperlipidemia, unspecified; R09.02 Hypoxemia; D62 Acute posthemorrhagic anemia; Z85.038 Personal history of other malignant neoplasm of large intestine; Z90.49 Acquired absence of other specified parts of digestive tract; R06.82 Tachypnea, not elsewhere classified; I48.91 Unspecified atrial fibrillation; K92.1 Melena
CPT/HCPCS: 70450; 71010; 71045; 71275; 74177; 76937; 78582; 80048; 80053; 81001; 82378; 82550; 83520; 83735; 83880; 84484; 85014; 85018; 85025; 85379; 85610; 85730; 86301; 86850; 86900; 86901; 88305; 90760; 93005; 96360; 97110; 97116; 97162; 99285; A9519; A9540; A9567; C1094; C9113; J1940; J2270; J2370; J2405; J2704; J7030; J7120; Q9967